=== PATIENT | male | born 1960 | race Caucasian/White ===

== ENCOUNTER 2018-09-02 08:34 | Inpatient (IN) ==
--- NOTE | 2018-09-02 09:00 | Emergency Department Note ---
Disposition Clinical Impression: Cellulitis of foot, left, Gas gangrene, Hypokalemia Diabetic foot ulcer Qualifiers: Diabetic foot ulcer location: unspecified part of foot Diabetes mellitus type: type 1 Laterality: left Non-pressure ulcer stage: with other severity Qualified Code(s): E10.621 - Type 1 diabetes mellitus with foot ulcer Sepsis Qualifiers: Sepsis type: sepsis due to unspecified organism Qualified Code(s): A41.9 - Sepsis, unspecified organism Disposition: Admitted As Inpatient Condition: Fair Referrals: Akin Correa DO [Primary Care Provider] - Forms: ED Satisfaction Letter Time of Disposition: 09:02 Extremity Problem HPI - General Chief complaint: ED Wound/Laceration Stated complaint: wound infection Time Seen by Provider: 09/02/18 08:37 Source: patient, family Mode of arrival: wheelchair Limitations: physical limitation Nursing Notes Reviewed: Yes Vital Signs Reviewed: Yes - History of Present Illness HPI Narrative: The patient was referred to the emergency department for planned admission by his organic section technical lead due to an ongoing left lower extremity diabetic foot ul cer he has been dealing with over the past several months. He was prescribed doxycycline. He denies fevers. He denies pain due to neuropathy Pt Subjective Complaint: extremity swelling Onset (ago): week(s) Consistency: constant Injury Location: left, lower extremity Pain Scale: 0 Associated symptoms: Reports: denies other symptoms - Related Data Previous Rx's Medication Instructions Recorded Ondansetron HCl [Zofran] 4 mg PO TID #15 tablet 08/31/18 Allergies Allergy/AdvReac Type Severity Reaction Status Date / Time Amoxicillin Allergy Rash Verified 08/31/18 18:02 clindamycin Allergy Rash Verified 08/31/18 18:02 All systems ED: reviewed and negative except as stated. Constitutional: Reports: as per HPI Eyes: Reports: as per HPI ENT ED: Reports: as per HPI Cardiovascular: Reports: as per HPI Respiratory: Reports: as per HPI Gastrointestinal: Reports: as per HPI Genitourinary: Reports: as per HPI Musculoskeletal: Reports: other (Left lower extremity swelling and erythema at the foot) Integumentary: Reports: other (Open lesion to left foot) Neurological: Reports: other (Diabetic neuropathy) Psychiatric: Reports: as per HPI Endocrine: Reports: other (Hyperglycemia) Hematological/Lymphatic: Reports: as per HPI Allergic/Immunologic: Reports: as per HPI Past Medical History - Past Medical History Source: old records reviewed Medical history: Reports: diabetes, hypertension Surgical history: Reports: other Psychiatric history: Reports: no psych history - Social History Smoking Status: Never smoker Smokeless Tobacco Status: No Alcohol use: Reports: none Drug use: Reports: none Physical Exam - General Limitations: physical limitation General appearance: alert, in no apparent distress - Head Head exam: atraumatic - Eye Eye exam: Present: normal appearance - ENT ENT exam: normal exam - Neck Neck exam: Present: normal inspection, full ROM - Chest Chest inspection: Present: normal inspection, symmetric chest wall rise - Respiratory Respiratory exam: Present: normal lung sounds bilaterally - Cardiovascular Cardiovascular exam: Present: tachycardia, normal heart sounds - Rectal Exam Rectal exam: Present: deferred - Expanded Lower Extremity Exam Lower leg exam: Present: normal inspection Ankle exam: Present: normal inspection Foot/toe exam: Present: tenderness, swelling, other (Quarter-sized ulcerative lesion extending through skin and subcutaneous tissue to the lateral and plantar surface of the foot. Foot is diffusely swollen and erythematous with increased tactile warmth) - Neurological Exam Neurological exam: Present: alert, oriented X3, CN II-XII intact - Psychiatric Psychiatric exam: Present: normal mood, flat affect - Skin Skin exam: Present: warm, dry Course Course Narrative: Patient presents with what clinically appears to be an infected left diabetic foot ulcer with foot cellulitis. I will process admission to the medicine service with podiatry consultation at the request of the organic section technical lead, . The patient was offered analgesics but declined - Reevaluation(s) Reevaluation #1: Patient meets sepsis criteria due to HR, WBC count, lactate, fever. Timed lactic acid ordered. Blood cultures pending. Admitting physician aware. - Consultations Consultation #1: Dr. richter, podiatry. case d/w him at 10:09 Time: 09:40 Vital Signs Temperature 98.6 F 09/02/18 08:41 Pulse Rate 135 09/02/18 08:41 Respiratory Rate 22 09/02/18 08:41 Blood Pressure 152/69 09/02/18 08:41 O2 Sat by Pulse Oximetry 96 09/02/18 08:41 Temperature 103 F H 09/02/18 10:53 Pulse Rate 125 09/02/18 10:53 Respiratory Rate 16 09/02/18 10:53 Blood Pressure 130/57 09/02/18 10:53 O2 Sat by Pulse Oximetry 96 09/02/18 10:53 Oxygen Delivery Oxygen Delivery Room Air Extremity Problem, Nontraumati - Medical Records Medical records reviewed: Yes I reviewed the patient's medical records. - Lab Data Lab results reviewed: Yes I reviewed the patient's lab results. Result diagrams: 09/02/18 09:00 09/02/18 09:00 Lab Results 09/02/18 09/02/18 09/02/18 Range/Units 09:00 09:00 09:00 WBC 15.3 H (4.3-11.1) K/mcL RBC 4.86 (4.19-5.50) M/mcL Hgb 12.7 L (12.9-16.9) g/dL Hct 38.0 (37.5-50.1) % MCV 78.2 L (83.0-100.0) fL MCH 26.1 L (28.0-33.3) pg MCHC 33.4 (31.6-35.5) g/dL RDW 14.8 H (11.5-14.5) % Plt Count 346 (140-400) K/mcL MPV 9.3 L (9.4-12.4) fL Immature Gran % 0.9 (0-4) % Seg Neutrophils % 88.3 % Lymphocytes % 6.4 % Monocytes % 4.2 % Eosinophils % 0.0 % Basophils % 0.2 % Neutrophils # 13.5 H (1.6-8.9) K/mcL Lymphocytes # 1.0 (0.6-4.6) K/mcL Monocytes # 0.6 (0.0-1.3) K/mcL Eosinophils # 0.0 (0.0-0.6) K/mcL Basophils # 0.0 (0.0-0.2) K/mcL PT 14.0 H (9.4-12.1) Seconds INR 1.2 Sodium 130 L (136-145) mEq/L Potassium 3.2 L (3.5-5.1) mEq/L Chloride 91 L (98-107) mEq/L Carbon Dioxide 24 (23-29) mEq/L BUN 40 H (6-20) mg/dL Creatinine 1.39 H (0.70-1.30) mg/dL Est GFR ( Amer) > 60 (> 60) Est GFR (Non-Af Amer) 53 L (> 60) BUN/Creatinine Ratio 29 H (6-26) Glucose 179 H (70-105) mg/dL Calculated Osmolality 284 (280-300) Lactic Acid (0.5-2.2) mmol/L Calcium 8.6 (8.6-10.3) mg/dL Total Bilirubin 0.6 (0.3-1.0) mg/dL AST 41 H (13-39) Units/L ALT 67 H (7-52) Units/L Alkaline Phosphatase 187 H (34-104) Units/L Serum Total Protein 7.0 (6.4-8.9) g/dL Albumin 3.1 L (3.5-5.7) g/dL Globulin 3.9 H (2.4-3.5) g/dL Albumin/Globulin Ratio 0.8 L (1.1-2.2) Blood Type Antibody Screen 09/02/18 09/02/18 Range/Units 09:00 09:59 WBC (4.3-11.1) K/mcL RBC (4.19-5.50) M/mcL Hgb (12.9-16.9) g/dL Hct (37.5-50.1) % MCV (83.0-100.0) fL MCH (28.0-33.3) pg MCHC (31.6-35.5) g/dL RDW (11.5-14.5) % Plt Count (140-400) K/mcL MPV (9.4-12.4) fL Immature Gran % (0-4) % Seg Neutrophils % % Lymphocytes % % Monocytes % % Eosinophils % % Basophils % % Neutrophils # (1.6-8.9) K/mcL Lymphocytes # (0.6-4.6) K/mcL Monocytes # (0.0-1.3) K/mcL Eosinophils # (0.0-0.6) K/mcL Basophils # (0.0-0.2) K/mcL PT (9.4-12.1) Seconds INR Sodium (136-145) mEq/L Potassium (3.5-5.1) mEq/L Chloride (98-107) mEq/L Carbon Dioxide (23-29) mEq/L BUN (6-20) mg/dL Creatinine (0.70-1.30) mg/dL Est GFR ( Amer) (> 60) Est GFR (Non-Af Amer) (> 60) BUN/Creatinine Ratio (6-26) Glucose (70-105) mg/dL Calculated Osmolality (280-300) Lactic Acid 4.2 H* (0.5-2.2) mmol/L Calcium (8.6-10.3) mg/dL Total Bilirubin (0.3-1.0) mg/dL AST (13-39) Units/L ALT (7-52) Units/L Alkaline Phosphatase (34-104) Units/L Serum Total Protein (6.4-8.9) g/dL Albumin (3.5-5.7) g/dL Globulin (2.4-3.5) g/dL Albumin/Globulin Ratio (1.1-2.2) Blood Type O POSITIVE Antibody Screen NEGATIVE - Radiology Data Radiology results reviewed: Yes I reviewed the patient's radiology results. Critical Care Time Critical Care Time: Yes Total Critical Care Time: 30 Attestation: The high probability of a clinically significant, sudden or life threatening deterioration of the [] system(s) required my full and direct attention, interv ention and personal management. The aggregate critical care time was [] minutes. This time is in addition to time spent performing reported procedures but includes the following: [] Data Review and interpretation [] Patient assessment and monitoring of vital signs [] Documentation [] Medication orders and management
[2018-09-02 09:20] LABS: Basophils % 0.2 %; Hemoglobin 12.7 g/dL (12.9-16.9); Immature Granulocytes % 0.9 % (0-4); Lymphocytes % 6.4 %; Mean Corpuscular HGB Conc 33.4 g/dL (31.6-35.5); Mean Corpuscular Hemoglobin 26.1 pg (28.0-33.3); Mean Corpuscular Volume 78.2 fL (83.0-100.0); Mean Platelet Volume 9.3 fL (9.4-12.4); Monocytes # 0.6 K/mcL (0.0-1.3); Monocytes % 4.2 %; Neutrophils # 13.5 K/mcL (1.6-8.9); Platelet Count 346 K/mcL (140-400); Red Blood Count 4.86 M/mcL (4.19-5.50); Red Cell Distribution Width 14.8 % (11.5-14.5); Segmented Neutrophils % 88.3 %
[2018-09-02] MEDS ORDERED: Levofloxacin 500 MG/100 ML 500 MG/100 ML BAG IVPB ONE (09:31)
[2018-09-02 09:34] LABS: INR 1.2
[2018-09-02 09:37] LABS: Alanine Aminotransferase 67 Units/L (7-52); Albumin 3.1 g/dL (3.5-5.7); Albumin/Globulin Ratio 0.8 (1.1-2.2); Alkaline Phosphatase 187 Units/L (34-104); Aspartate Amino Transferase 41 Units/L (13-39); BUN/Creatinine Ratio 29 (6-26); Bilirubin,Total 0.6 mg/dL (0.3-1.0); Blood Urea Nitrogen 40 mg/dL (6-20); Calcium 8.6 mg/dL (8.6-10.3); Carbon Dioxide 24 mEq/L (23-29); Chloride 91 mEq/L (98-107); Globulin 3.9 g/dL (2.4-3.5); Glucose 179 mg/dL (70-105); Osmolality,Calculated 284 (280-300); Potassium 3.2 mEq/L (3.5-5.1); Sodium 130 mEq/L (136-145); eGFR For Non-African Americans 53 (> 60)
--- NOTE | 2018-09-02 10:57 | Internal Med History&Physical ---
Date of Encounter: 09/02/18 Time of Encounter: 10:05 Internal Medicine - H&P: HPI Admitted From: Emergency Dept Plans for Post Hospital Care: Transfer Long Term Facility History of present illness: Mr. Mulligan is a 57 year old male with a possible medical history of diabetes mellitus, hypertension who presents with a L diabetic foot ulcer that has not responded to outpt antibitoic therapy. The pt has been advise by Dr. Daniels who saw him this morning for inpt hospitalization. The pt has gas in subcut tidssue w/o osteous extension. The pt may have surgical intervention during this hospitalization. He has had previous anesthesia for his back surgery without any problems. The patient denies any chest pain or shortness of breath. He is not a smoker. He does not use alcohol or drugs. He denies any previous history of coronary artery disease or stroke. Past Med Surg Social Fam HX - Past Medical History Medical history: diabetes, hypertension Additional medical history: SPINAL STENOSIS Psychiatric history: no psych history - Past Surgical History Surgical History: other Additional surgical history: tonsils,left foot,back surgery - Social History Smoking Status: Never smoker Smokeless Tobacco Status: No Alcohol use: none Drug use: none - Family History Mother Family Member Ethnicity: Non- Living Status: Hx Family Cardiac Disorders: Yes Hx Family Respiratory Disorders: No Hx Family Cancer: Yes Hx Family GI Disorders: No Hx Family Endocrine Disorder: Yes Hx Family Neuromuscular Disorders: No Hx Family Neurologic Disorders: No Hx Family HEENT Disorders: No Hx Family Autoimmune Disorders: No Internal Medicine - H&P: Meds Ondansetron HCl [Zofran] 4 mg PO TID #15 tablet 08/31/18 [Rx] Allergy/AdvReac Type Severity Reaction Status Date / Time Amoxicillin Allergy Rash Verified 09/02/18 10:59 clindamycin Allergy Rash Verified 09/02/18 10:59 All Systems PM: A 10-system review of systems was performed and is negative for pertinent findings except as documented above in the HPI. - Constitutional Vitals: Temp Pulse Resp BP Pulse Ox 98.6 F 125 16 151/73 97 09/02/18 08:41 09/02/18 09:00 09/02/18 09:00 09/02/18 09:00 09/02/18 09:00 General appearance: Present: A&O X 3, morbidly obese, answers questions ap propriately Exam: Patient lying comfortably in bed. - Head Head exam: Present: atraumatic - Eye Eye exam: Present: conjuntiva pink, sclera anicteric Pupils: Present: normal accommodation - Neck Neck exam general surgery: Present: full ROM, supple, trachea midline Additional comments: No carotid bruits. - Respiratory Respiratory exam: Present: CTAB. Absent: accessory muscle use, rales, rhonchi, wheezes - Cardiovascular Cardiovascular exam: Present: RRR, +S1, +S2. Absent: diastolic murmur, gallop, rubs, systolic murmur - GI/Abdominal GI/Abdominal exam: Present: normal bowel sounds, soft, no peritoneal signs. Absent: distended, tenderness - Extremities Exam Extremities exam: Present: warm, radial pulses palpable and symmetrical. Absent: calf tenderness, cyanotic, pedal edema Additional comments: The left lower extremity shows 1+ pitting edema. The dorsalis pedis pulse is 1+. The posterior tibialis pulse is barely palpable but this is probably due to the overlying edema. The Refill is normal. There is a 3.5 cm in diameter ulcer on the plantar surface overlying the fifth metatarsal area. There is no active drainage or foul odor from this. - Neurological Exam Neurological exam: Present: CN II-XII intact, oriented X3, no focal deficits. Absent: pronater drift, facial droop, speech deficit - Skin Skin exam: Present: dry, intact Internal Med - H&P Results - Labs CBC & Chem 7: 09/02/18 09:00 09/02/18 09:00 Labs: Short CBC 09/02/18 Range/Units 09:00 WBC 15.3 H (4.3-11.1) K/mcL Hgb 12.7 L (12.9-16.9) g/dL Hct 38.0 (37.5-50.1) % Plt Count 346 (140-400) K/mcL Neutrophils # 13.5 H (1.6-8.9) K/mcL BMP 09/02/18 09:00 Sodium 130 L Potassium 3.2 L Chloride 91 L Carbon Dioxide 24 BUN 40 H Creatinine 1.39 H Glucose 179 H Calcium 8.6 Liver Function 09/02/18 Range/Units 09:00 Total Bilirubin 0.6 (0.3-1.0) mg/dL AST 41 H (13-39) Units/L ALT 67 H (7-52) Units/L Alkaline Phosphatase 187 H (34-104) Units/L Albumin 3.1 L (3.5-5.7) g/dL - Impressions ITS Impressions Foot X-Ray 09/02/18 08:57 IMPRESSION: 1. Extensive subcutaneous gas and soft tissue swelling of the left foot. Findings have worsened since 08/12/2018. 2. No new osseous abnormality. Stable osteopenia identified involving the 5th proximal phalanx without obvious bony erosion. Redemonstration of postsurgical changes of the 5th metatarsal. D/ / 09/02/2018 09:45:55 Mignon Lerner MD / ludwig Interpreting Provider: Mignon Lerner MD - Assessment and plan (1) Diabetic foot ulcer Current Visit: Yes Status: Acute Assessment and plan: Admit to the acute medical floor. Start IV vancomycin, IV cefepime and Flagyl. Due to gas and subcutaneous tissue regimen is being added for anaerobic coverage. Podiatry is consulted. Qualifiers: Diabetic foot ulcer location: unspecified part of foot Diabetes mellitus type: type 2 Laterality: left Non-pressure ulcer stage: with other severity Qualified Code(s): E11.621 - Type 2 diabetes mellitus with foot ulcer; L97.528 - Non-pressure chronic ulcer of other part of left foot with other specified severity (2) HTN (hypertension) Current Visit: Yes Status: Acute Assessment and plan: Monitor blood pressure. Continue lisinopril. Qualifiers: Hypertension type: essential hypertension Qualified Code(s): I10 - Essential (primary) hypertension (3) CKD (chronic kidney disease) stage 3, GFR 30-59 ml/min Current Visit: Yes Status: Acute Assessment and plan: Monitor renal function. Adjust medications to renal function. Avoid nephrotoxic. (4) Hypokalemia Current Visit: Yes Status: Acute Assessment and plan: Asymptomatic with mild decrease in potassium levels. Potassium has been replace d in the ER. Continue to monitor. (5) Sepsis Current Visit: Yes Status: Acute Assessment and plan: Meet sepsis criteria. Blood cultures have been obtained supportive care as needed. Follow lactate levels. Qualifiers: Sepsis type: sepsis due to unspecified organism Qualified Code(s): A41.9 - Sepsis, unspecified organism - Time Spent With Patient Total time spent is greater than 50% in coordination of care (as documented) at patient's floor/unit and/or counseling patient: Greater than 35 minutes
[2018-09-02] MEDS ORDERED: Gadolinium Contrast Agent (WT Based) IV PRN (11:45)
--- NOTE | 2018-09-02 14:49 | Podiatry Consult Note ---
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 insulin use: wit h terminal computer operator use Diabetes mellitus complication status: without complication Qualified Code(s): E11.9 - Type 2 diabetes mellitus without complications; Z79.4 - care home (current) use of insulin (2) Diabetic foot ulcer Current visit: Yes Status: Acute Assessment: Dressing intact with serosang drainage noted Dressing removed and site flushed with .9NS Blandon grade 3 ulcer left lateral aspect mid-foot Maceration noted wound edges No odor Probes to bone Increased temperature in left foot compared to right Erythema extending dorsal aspect of left foot Edema 3-4+ No streaking noted Undermining noted MRI pending ESR 43 on 08/19/18 CRP 5mg/l 08/19/18 HgbA1c 6.9 05/22/18 Left foot x-ray with evidence of extensive subcutaneous gas and soft tissue swelling WBC elevated 15.3 and patient febrile, temp in ER 103, down to 100.6 PT 14.0 INR 1.2 Plan: Adaptic applied 4x4's applied and secured with kerlix Pt to remain NPO Plan for Dr. Zuñiga to take patient to OR later today for I&D, surgical procedure discussed with patient Recommend ID consult any recommendations are appreciated All questions and concerns addressed Will continue to monitor Qualifiers: Diabetic foot ulcer location: unspecified part of foot Diabetes mellitus type: type 2 Laterality: left Non-pressure ulcer stage: with other severity Qualified Code(s): E11.621 - Type 2 diabetes mellitus with foot ulcer; L97.528 - Non-pressure chronic ulcer of other part of left foot with other specified severity History of Present Illness HPI: Mr. Mulligan is a 57 year old male, alert and oriented x 3, with a past medical history of DM, neuropathy, HTN, osteomyelitis, and obesity. Patient has been undergoing treatment for a left foot ulcer since April of [address] Zuñiga in wound care. Patient reports the wound started after he obtained a blood blister from wearing a new lateral lift support in his shoe. Patient reports he walks on the side of his foot and this is why he was given the support. He has been receiving treatment in wound care and he reports the most recent treatment he has been receiving is pressure dressings using 4x4's and kerlix. Today he was sent to the ER from wound care due to the left foot ulcer not responding to therapy and fever. Dr. Zuñiga recommended he go to the ER for admission for IV antibiotics and possible surgery today for an I&D. Patient denies any chest pain, shortness of breath, or calf pain. Patient does report fever for one week, temperature upon arrival to ER 103, down to 100.6 at 1225 after having Tylenol. Patient also reports diarrhea, last episode this am around 0900. He denies any nausea, vomiting, chills, flushing, or abdominal pain. He is known to podiatry and wound care and was treated by Dr. Mathew in the past. He is not a smoker. He does not use alcohol or drugs. He denies any previous history of coronary artery disease or stroke. is sitting at bedside with patient. Past Med Surg Social Fam HX - Past Medical History Medical history: diabetes, hypertension Additional medical history: SPINAL STENOSIS Psychiatric history: no psych history - Past Surgical History Surgical History: other Additional surgical history: tonsils,left foot,back surgery - Social History Smoking Status: Never smoker Smokeless Tobacco Status: No Alcohol use: none Drug use: none - Family History Mother Family Member Ethnicity: Non- Living Status: Still Living Hx Family Cardiac Disorders: Yes Hx Family Respiratory Disorders: No Hx Family Cancer: Yes Hx Family GI Disorders: Yes Hx Family Genitourinary Disorders: No Hx Family Endocrine Disorder: Yes Hx Family Musculoskeletal Disorders: No Hx Family Neuromuscular Disorders: No Hx Family Neurologic Disorders: No Hx Family HEENT Disorders: No Hx Family Autoimmune Disorders: No Hx Family Reproductive Disorders: No Hx Family Psychosocial Disorders: No Hx Family Medical Disorders: No Medications and Allergies Ondansetron HCl [Zofran] 4 mg PO TID #15 tablet 08/31/18 [Rx] Ammonium Lactate [Lac-Hydrin Five] 1 appl TP BID 09/02/18 [History] Ascorbic Acid [Vitamin C] 500 mg PO DAILY 09/02/18 [History] Doxycycline Hyclate 100 mg PO DAILY 09/02/18 [History] Dulaglutide [Trulicity] 1.5 mg SQ QWEEK 09/02/18 [History] Ferrous Sulfate [Iron] 325 mg PO DAILY 09/02/18 [History] Insulin ASPART [Novolog Flexpen] 30 units SQ TIDWM 09/02/18 [History] Insulin Glargine,Hum.rec.anlog [Lantus Solostar] 50 unit SQ BID 09/02/18 [History] Lisinopril/Hydrochlorothiazide [Zestoretic 20-25 mg Tablet] 1 tab PO DAILY 09/02/18 [History] Metformin HCl 1,000 mg PO BID 09/02/18 [History] Pioglitazone HCl 45 mg PO DAILY 09/02/18 [History] Potassium Chloride [K-Tab ER] 10 meq PO DAILY 09/02/18 [History] RX: Atorvastatin [Lipitor] 40 mg PO DAILY 09/02/18 [History] Allergy/AdvReac Type Severity Reaction Status Date / Time Amoxicillin Allergy Rash Verified 09/02/18 10:59 clindamycin Allergy Rash Verified 09/02/18 10:59 All Systems Reviewed: The remainder of the systems were reviewed and are negative Review of systems: As per HPI Physical Exam - Constitutional Vitals: Temp Pulse Resp BP Pulse Ox 100.6 F H 118 20 118/70 93 09/02/18 12:25 09/02/18 12:25 09/02/18 12:25 09/02/18 12:25 09/02/18 12:25 Exam: Constitiutional: Alert and oriented x 3, well nourished, obese male. No acute distress noted. Vascular: 1/4 DP, 2/4 PT pulses noted, CFT <3 sec to all digits, skin warm from toes to tibia and erythema noted left foot with 3-4+ edema Neurologic: Diminished protective sensation noted, proprioception sensation absent Dermatalogic: Blandon grade 3 ulcer noted left lateral aspect mid-foot. Wound edges with maceration. No odor. Probes to bone with undermining. Erythema extending to dorsal aspect of foot and edema noted 3-4+. No streaking noted. Skin around ulcer dry and peeling. Skin temperature increased in left foot compared to right Musculoskeletal: 4/5 muscle strength and normal tone - Expanded Lower Extremities Exam 1 - 2.3 x 3.1 cm Blandon grade 2 ulcer Results - Labs Result Diagrams: 09/02/18 09:00 09/02/18 09:00 Labs: Abnormal lab results WBC 15.3 K/mcL (4.3-11.1) H 09/02/18 09:00 Hgb 12.7 g/dL (12.9-16.9) L 09/02/18 09:00 MCV 78.2 fL (83.0-100.0) L 09/02/18 09:00 MCH 26.1 pg (28.0-33.3) L 09/02/18 09:00 RDW 14.8 % (11.5-14.5) H 09/02/18 09:00 MPV 9.3 fL (9.4-12.4) L 09/02/18 09:00 Neutrophils # 13.5 K/mcL (1.6-8.9) H 09/02/18 09:00 PT 14.0 Seconds (9.4-12.1) H 09/02/18 09:00 Sodium 130 mEq/L (136-145) L 09/02/18 09:00 Potassium 3.2 mEq/L (3.5-5.1) L 09/02/18 09:00 Chloride 91 mEq/L (98-107) L 09/02/18 09:00 BUN 40 mg/dL (6-20) H 09/02/18 09:00 Creatinine 1.39 mg/dL (0.70-1.30) H 09/02/18 09:00 Est GFR (Non-Af Amer) 53 (> 60) L 09/02/18 09:00 BUN/Creatinine Ratio 29 (6-26) H 09/02/18 09:00 Glucose 179 mg/dL (70-105) H 09/02/18 09:00 Lactic Acid 4.2 mmol/L (0.5-2.2) H* 09/02/18 09:59 AST 41 Units/L (13-39) H 09/02/18 09:00 ALT 67 Units/L (7-52) H 09/02/18 09:00 Alkaline Phosphatase 187 Units/L (34-104) H 09/02/18 09:00 Albumin 3.1 g/dL (3.5-5.7) L 09/02/18 09:00 Globulin 3.9 g/dL (2.4-3.5) H 09/02/18 09:00 Albumin/Globulin Ratio 0.8 (1.1-2.2) L 09/02/18 09:00 H & H 09/02/18 Range/Units 09:00 Hgb 12.7 L (12.9-16.9) g/dL Hct 38.0 (37.5-50.1) % All other labs normal. Consult Discharge Plan - Plan Referrals: Akin Correa DO [Primary Care Provider] -
[2018-09-02] MEDS ORDERED: D5% in Water 1,000 ML IVC PRN ×2 (15:47→19:01)
[2018-09-02] MEDS ORDERED: *HR* Dextrose 50 % in Water (Syg) 50 ML SYRINGE IVP PRN ×2 (15:47→19:01)
[2018-09-02] MEDS ORDERED: Dextrose Gel 15 GM/37.5 ML TUBE PO PRN ×4 (15:47→19:01)
[2018-09-02 15:57] LABS: Estimated Average Glucose 171 mg/dl; Hemoglobin A1C 7.6 %
[2018-09-02] MEDS ORDERED: MetroNIDAZOLE 500 MG/100 ML 500 MG/100 ML BAG IVPB SCH (16:00)
[2018-09-02] MEDS ORDERED: Cefepime HCl 2,000 MG in Water for inj. (sterile) 20 ML 20 ML IVP SCH (16:00)
[2018-09-02] MEDS ORDERED: Insulin LISPRO 300 UNITS/3 ML VIAL SQ SCH ×2 (16:30→21:00)
[2018-09-02] MEDS ORDERED: *HR* Metformin 500 MG TABLET PO SCH (17:00)
[2018-09-02] MEDS ORDERED: Bupivacaine/EPI 1:200k 0.25%PF 30 ML VIAL ONE (17:02)
[2018-09-02] MEDS ORDERED: Bupivacaine-MPF 0.25% 10 ML VIAL ONE (17:03)
[2018-09-02] MEDS ORDERED: Vancomycin 1,000 MG VIAL ONE ×2 (17:03→17:16)
[2018-09-02] MEDS ORDERED: Lidocaine 1% 20 ML MDV ONE (17:03)
[2018-09-02] MEDS ORDERED: Propofol 500 MG/50 ML INFUS..BTL ONE ×2 (17:05→18:11)
[2018-09-02] MEDS ORDERED: Lidocaine -MPF 2% 2 ML VIAL ONE (17:06)
[2018-09-02] MEDS ORDERED: *HR* FentaNYL (PF) 100 MCG/2 ML VIAL ONE (17:08)
--- NOTE | 2018-09-02 17:10 | Podiatry Progress Note ---
Date of Encounter: 09/02/18 Time of Encounter: 04:35 - Assessment and Plan (1) Gas gangrene Current Visit: Yes Status: Acute Discussed with patient surgical procedure incision and drainage debridement of nonviable tissue and bone biopsy. Nature of the procedure risks versus benefits potential complications consequences of surgery and his condition discussed at length. No guarantees were made that he would keep his foot or leg leg. Patient understood this is a staged procedure and he will require multiple procedures. All of his questions have been answered informed consent was signed. NPO. To OR. Subjective Interval history: Patient admitted with gas gangrene and possible osteomyelitis. Objective - Vital Signs Vital Signs: Vital Signs Temp Pulse Resp BP Pulse Ox 09/02/18 12:25 100.6 F H 118 20 118/70 93 09/02/18 11:00 103 F H 123 16 134/59 94 09/02/18 10:53 103 F H 125 16 130/57 96 09/02/18 09:00 125 16 151/73 97 09/02/18 08:41 98.6 F 135 22 152/69 96 Intake and Output 09/02/18 09/02/18 09/02/18 07:59 15:59 23:59 Intake Total 350 / 350 Balance 350 / 350 Intake: IV Fluids 350 / 350 Potassium Chloride 10 mEq/100mL 100 / 100 10 meq In 100 ml @ 100 mls/hr IVPB Q1H SANDRA Rx#:[id number] Vancocin 1,000 MG In 0.9 % 250 / 250 Sodium Chloride 250 ML @ 167 mls/hr IVPB ONCE ONE Rx#: [id number] Other: Weight 154.448 kg Blood Glucose* 123 Patient Weight 09/02/18 23:59 Weight 154.448 kg - Lab Result Diagrams: 09/02/18 09:00 09/02/18 09:00 Labs: Abnormal lab results WBC 15.3 K/mcL (4.3-11.1) H 09/02/18 09:00 Hgb 12.7 g/dL (12.9-16.9) L 09/02/18 09:00 MCV 78.2 fL (83.0-100.0) L 09/02/18 09:00 MCH 26.1 pg (28.0-33.3) L 09/02/18 09:00 RDW 14.8 % (11.5-14.5) H 09/02/18 09:00 MPV 9.3 fL (9.4-12.4) L 09/02/18 09:00 Neutrophils # 13.5 K/mcL (1.6-8.9) H 09/02/18 09:00 ESR 104 mm/hr (0-10) H 09/02/18 13:57 PT 14.0 Seconds (9.4-12.1) H 09/02/18 09:00 Sodium 130 mEq/L (136-145) L 09/02/18 09:00 Potassium 3.2 mEq/L (3.5-5.1) L 09/02/18 09:00 Chloride 91 mEq/L (98-107) L 09/02/18 09:00 BUN 40 mg/dL (6-20) H 09/02/18 09:00 Creatinine 1.39 mg/dL (0.70-1.30) H 09/02/18 09:00 Est GFR (Non-Af Amer) 53 (> 60) L 09/02/18 09:00 BUN/Creatinine Ratio 29 (6-26) H 09/02/18 09:00 Glucose 179 mg/dL (70-105) H 09/02/18 09:00 Hemoglobin A1c 7.6 % (-5.6) H 09/02/18 09:00 Lactic Acid 2.5 mmol/L (0.5-2.2) H 09/02/18 15:34 AST 41 Units/L (13-39) H 09/02/18 09:00 ALT 67 Units/L (7-52) H 09/02/18 09:00 Alkaline Phosphatase 187 Units/L (34-104) H 09/02/18 09:00 C-Reactive Protein 273 mg/L (Less than 10) H 09/02/18 15:13 Albumin 3.1 g/dL (3.5-5.7) L 09/02/18 09:00 Globulin 3.9 g/dL (2.4-3.5) H 09/02/18 09:00 Albumin/Globulin Ratio 0.8 (1.1-2.2) L 09/02/18 09:00 Microbiology, Last 48 Hours 09/02/18 09:59 Blood Culture - Preliminary Peripheral Venipuncture Culture is incubating and being continuously monitored for growth. Final report to follow. Consult Discharge Plan - Plan Referrals: Akin Correa DO [Primary Care Provider] -
--- NOTE | 2018-09-02 17:23 | Anesthesia Evaluation PreOp ---
Date of Encounter: 09/02/18 Time of Encounter: 17:20 - Past History Planned Operation: Left Foot I & D Cardiac History: HTN, Hyperlipidemia Pulmonary History: Snore TRANSITION MGR RN History: Denies Any Significant HX Other Medical History: Diabetes Type II, Other (Obese BMI- 42.6) Anesthesia History: No Prior Anesthetic Complications, Past Anesthesia (I & D Foot) Alcohol Use: none Drug use: none Medications and Allergies Ondansetron HCl [Zofran] 4 mg PO TID #15 tablet 08/31/18 [Rx] Allergy/AdvReac Type Severity Reaction Status Date / Time Amoxicillin Allergy Rash Verified 09/02/18 10:59 clindamycin Allergy Rash Verified 09/02/18 10:59 - Meds/Allergy Pre-op Review Medications Reviewed: Yes Allergies Reviewed: Yes Beta Blockers on Current Med List: No Anesthesia Results - Labs 09/02/18 09:00 09/02/18 09:00 Anesthesia Exam O2 Sat Height 1.91 m Height 1.91 m Height 1.91 m Weight 154.448 kg Weight 320 kg Weight 145.15 kg O2 Sat by Pulse Oximetry 93 O2 Sat by Pulse Oximetry 94 O2 Sat by Pulse Oximetry 96 O2 Sat by Pulse Oximetry 97 O2 Sat by Pulse Oximetry 96 Vital Signs Temp Pulse Resp BP Pulse Ox 98.6 F 135 22 152/69 96 09/02/18 08:41 09/02/18 08:41 09/02/18 08:41 09/02/18 08:41 09/02/18 08:41 NPO (# of Hours): > 8 Hrs Pain Scale: 0 Pain Scale Used: Numeric (1 - 10) - HEENT Pupil (Motor): Pupils equal, EOMI Mallampati: III Teeth: Normal Oral Opening: Greater than 3 - TRANSITION MGR RN LOC: Oriented TRANSITION MGR RN Motor: Normal RUE, Normal LUE, Normal RLE, Normal LLE, Normal Face TRANSITION MGR RN Sensory: Normal: RUE, LUE, RLE, LLE, Face - Cardiac Rhythm: Regular Murmur: None JVD: No Carotid Bruit: No - Pulmonary Breath Sounds: bilateral Clear Respiratory Effort: Symmetrical Anesthesia Assess/Plan ASA Score: 3 Level of consciousness: Cooperative Anesthetic Plan: MAC Autologous Blood: Yes Monitoring Plan: Standard Monitors Recovery Plan: Other
[2018-09-02] MEDS ORDERED: *HR* PHENYLEPHRINE 1,000 MCG/10 ML SYRINGE IVP ONE (18:18)
[2018-09-02] MEDS ORDERED: EPHEDrine 50 MG/ML VIAL ONE (18:29)
--- NOTE | 2018-09-02 18:48 | Operative Note ---
Date of procedure: 09/02/18 Pre-op diagnosis: left foot gas gangrene, osteomyelitis, abscess Post-op diagnosis: same Procedure: incision and drainage left foot bone biopsy left foot Implants: none Complications: none Anesthesia: MAC Local Anesthetics: 1% Lidocaine HCL SubQ (cc) Surgeon: Juan Zuñiga Was there an surveyor instrument assistant present: No Estimated blood loss (cc): 100 Specimen: micro and path 5th met, left foot soft tissue-micro Condition: stable Disposition: PACU Procedure in Detail: Indications: 57-year-old diabetic female with gas gangrene infection and likely osteomyelitis of the fifth metatarsal base being brought to the operating room for bone biopsy and incision and drainage and removal of nonviable tissue of the left foot. Nature of the procedures, risks versus benefits potential complic ations consequences of surgery and his condition discussed at length. Patient understood this could be a staged procedure and he will require multiple surgeries in the future if his foot is even able to be salvaged. All of his questions have been answered informed consent was signed patient was brought to the operating room placed on operating room table in the supine position. 1% lidocaine plain was injected into the patient's left foot. Tourniquet was applied but not inflated during the entire procedure. Bone biopsy left foot. Attention was directed to the patient's left foot where a rongeur was used to obtain bone specimens from the fifth metatarsal base which were sent to microbiology and pathology. Should be noted that the bone specimens had devitalized soft tissue covering them and the bone was also noted to be soft. Incision and drainage left foot. An incision was made connecting to the submetatarsal 5 ulceration proximally and distally. The area was probed and explored. Devitalized tissue was excised and sent to microbiology. The area did not connect with the dorsal foot and an incision was made in this area and serosanguineous drainage was expressed. In the plantar aspect of the foot there was purulent drainage expressed. There was also purulent drainage around the fifth metatarsal bone and soft tissue. Pulse lavage was utilized to irrigate the area and contained 3 g of vancomycin. Devitalized tissue had been excised. Surgicel was placed in the wound and pressure held. Adequate hemostasis was present. Postoperative bandaging included 4 x 4 gauze ABDs Kerlix and an Kanu wrap. Patient will return to the floor where he will continue IV antibiotics.
[2018-09-02] MEDS: Insulin LISPRO 300 UNITS/3 ML VIAL SQ SCH (19:48)
[2018-09-02] MEDS ORDERED: Insulin DETEMIR 100 UNIT/ML X5UNITS SQ SCH (21:00)
[2018-09-02] MEDS: Insulin DETEMIR 100 UNIT/ML X5UNITS SQ SCH (21:24)
[2018-09-02] MEDS: MetroNIDAZOLE 500 MG/100 ML 500 MG/100 ML BAG IVPB SCH (23:58)
[2018-09-03] MEDS: Cefepime HCl 2,000 MG in Water for inj. (sterile) 20 ML 20 ML IVP SCH ×4 (00:02→23:39)
[2018-09-03] MEDS: Acetaminophen 325 MG TABLET PO PRN ×3 (01:38→16:44)
[2018-09-03] MEDS: *HR* Enoxaparin 40 MG/0.4 ML SYRINGE SQ SCH (05:22)
[2018-09-03] MEDS ORDERED: *HR* Enoxaparin 40 MG/0.4 ML SYRINGE SQ SCH (06:00)
[2018-09-03 06:46] LABS: Basophils % 0.1 %; Eosinophils % 0.3 %; Hematocrit 31.9 % (37.5-50.1); Immature Granulocytes % 0.9 % (0-4); Lymphocytes # 1.3 K/mcL (0.6-4.6); Lymphocytes % 9.2 %; Mean Corpuscular HGB Conc 33.5 g/dL (31.6-35.5); Mean Corpuscular Hemoglobin 25.8 pg (28.0-33.3); Mean Corpuscular Volume 76.9 fL (83.0-100.0); Mean Platelet Volume 9.6 fL (9.4-12.4); Monocytes # 1.4 K/mcL (0.0-1.3); Monocytes % 9.9 %; Neutrophils # 11.4 K/mcL (1.6-8.9); Platelet Count 282 K/mcL (140-400); Red Blood Count 4.15 M/mcL (4.19-5.50); Red Cell Distribution Width 15.1 % (11.5-14.5); Segmented Neutrophils % 79.6 %
[2018-09-03 06:52] LABS: Hemoglobin 10.7 g/dL (12.9-16.9)
[2018-09-03 07:04] LABS: BUN/Creatinine Ratio 33 (6-26); Blood Urea Nitrogen 46 mg/dL (6-20); Calcium 8.1 mg/dL (8.6-10.3); Carbon Dioxide 24 mEq/L (23-29); Chloride 100 mEq/L (98-107); Glucose 199 mg/dL (70-105); Osmolality,Calculated 291 (280-300); Potassium 3.5 mEq/L (3.5-5.1); Sodium 132 mEq/L (136-145); eGFR For Non-African Americans 53 (> 60)
[2018-09-03] MEDS ORDERED: Insulin LISPRO 300 UNITS/3 ML VIAL SQ SCH ×2 (07:30→12:00)
[2018-09-03] MEDS ORDERED: *HR* Metformin 500 MG TABLET PO SCH (08:00)
[2018-09-03] MEDS: Loratadine 10 MG TABLET PO SCH (08:14)
[2018-09-03 08:15] LABS: Acinetobacter baumannii by PCR Not Detected (Not Detect); Candida albicans by PCR Not Detected (Not Detect); Candida glabrata by PCR Not Detected (Not Detect); Candida krusei by PCR Not Detected (Not Detect); Candida parapsilosis by PCR Not Detected (Not Detect); Candida tropicalis by PCR Not Detected (Not Detect); Enterobacter cloacae Cmplx PCR Not Detected (Not Detect); Enterobacteriaceae by PCR Not Detected (Not Detect); Enterococcus by PCR Not Detected (Not Detect); Escherichia coli by PCR Not Detected (Not Detect); Klebsiella oxytoca by PCR Not Detected (Not Detect); Klebsiella pneumoniae by PCR Not Detected (Not Detect); Proteus by PCR Not Detected (Not Detect); Pseudomonas aeruginosa by PCR Not Detected (Not Detect); Serratia marcescens by PCR Not Detected (Not Detect); Staphylococcus aureus by PCR Not Detected (Not Detect); Staphylococcus by PCR Not Detected (Not Detect); Streptococcus agalactiae(B)PCR DETECTED (Not Detect); Streptococcus by PCR DETECTED (Not Detect); Streptococcus pneumoniae PCR Not Detected (Not Detect); Streptococcus pyogenes (A) PCR Not Detected (Not Detect); blaKPC Carbapenem-Resist Gene Not Detected (Not Detect); vanA/B Vancomycin-Resist Genes Not Detected (Not Detect)
[2018-09-03] MEDS: MetroNIDAZOLE 500 MG/100 ML 500 MG/100 ML BAG IVPB SCH ×3 (08:15→23:39)
[2018-09-03] MEDS: Insulin DETEMIR 100 UNIT/ML X5UNITS SQ SCH ×2 (08:41→21:41)
[2018-09-03] MEDS ORDERED: Loratadine 10 MG TABLET PO SCH (09:00)
[2018-09-03] MEDS ORDERED: Lisinopril 20 MG TABLET PO SCH ×2 (09:00)
[2018-09-03] MEDS: Ringers Solution, Lactated 1,000 ML IVC SCH (09:36)
--- NOTE | 2018-09-03 09:44 | Internal Med Progress Note ---
Hospitalist Progress Note - Encounter Date of Encounter: 09/03/18 Time of Encounter: 09:41 - Subjective Interval History: I have seen and evaluated the patient and bedside. Patient denies chest pain, or shortness of breath. Reports no sensation in the lower extremity bilaterally. Denies nausea, vomiting and abdominal pain. - Exam Vitals: Temp Pulse Resp BP Pulse Ox 98.5 F 93 16 116/68 95 09/03/18 07:55 09/03/18 07:55 09/03/18 07:55 09/03/18 07:55 09/03/18 07:55 Exam: Vitals: Reviewed. General: Alert and oriented 4. In no acute distress. Skin: Normal color, no rash, no lesions. HEENT: Dry oral mucosa, EOM, pupils equal, round and reactive. Cardiovascular: RRR, normal S1 & S2, no rubs, murmurs or gallops. Lungs: Clear to auscultation bilaterally, no wheezes or crackles. Abdomen: Obese, soft, non-tender, no rigidity. Extremities: Decreased sensation to touch in the lower extremity bilaterally, left lower extremity with clean surgical dressing. Neurological: Normal cognition and motor skills. Rest of the physical exam is non contributory - Assessment and Plan (1) Bacteremia Current Visit: Yes Status: Acute Assessment and Plan: 1 bottle of initial blood culture growing gram positive cocci. patient meets sepsis criteria. with lactic acid of 2.5 from 4.2 on admission. started on IV fluid with LR@75mls/hr repeat lactic acid this afternoon continue broad spectrum IV antibiotics Will repeat 2 sets of blood cultures ID has been consulted. TTE ordered. (2) Sepsis Current Visit: Yes Status: Acute Assessment and Plan: Plan of care as above (3) Diabetic foot ulcer Current Visit: Yes Status: Acute Assessment and Plan: left foot gas gangrene, osteomyelitis, abscess. Status post incision and drainage left foot bone biopsy left foot Plan Continue vancomycin and cefepime and Flagyl. ID has been consulted for antibiotic management patient will require a prolonged course of IV antibiotics. Recommendation appreciated Wound care by geometry tutor. (4) CKD (chronic kidney disease) stage 3, GFR 30-59 ml/min Current Visit: Yes Status: Acute Assessment and Plan: Nephro Protective strategies. Patient on vancomycin per pharmacy dosing. Star russell on IV hydration. We will reassess kidney function in the morning. (5) Diabetes Current Visit: Yes Status: Chronic Assessment and Plan: Blood sugars optimally controlled. Discontinue metformin. Continue Levemir 40 units twice a day plus lispro low-dose sliding scale plus lispro 7 units before meals. Carb controlled diet. (6) HTN (hypertension) Current Visit: Yes Status: Chronic Assessment and Plan: Blood pressure running in the low 100s in the setting of sepsis. Discontinue lisinopril. We will continue to monitor and adjust medication accordingly. DVT Prophylaxis: Patient is on enoxaparin 40 mg subcutaneous daily. - Summary of Assessment and Plan Summary of Assessment and Plan: Patient to remain in the hospital due to bacteremia, sepsis. Diabetic foot ulcer and Osteomyelitis on broad-spectrum IV antibiotics. - Time Spent with Patient Total time spent is greater than 50% in coordination of care (as documented) at patient's floor/unit and/or counseling patient: Greater than 35 minutes (45) Plan of Care Discussed with: patient (the nurse and his .) Internal Medicine: Result - Labs CBC & Chem 7: 09/03/18 06:33 09/03/18 06:33 Labs: Short CBC 09/03/18 Range/Units 06:33 WBC 14.4 H (4.3-11.1) K/mcL Hgb 10.7 L D (12.9-16.9) g/dL Hct 31.9 L (37.5-50.1) % Plt Count 282 (140-400) K/mcL Neutrophils # 11.4 H (1.6-8.9) K/mcL BMP 09/03/18 06:33 Sodium 132 L Potassium 3.5 Chloride 100 Carbon Dioxide 24 BUN 46 H Creatinine 1.39 H Glucose 199 H Calcium 8.1 L - ABG Interpretation ABG results: PT/INR, D-dimer PT 14.0 Seconds (9.4-12.1) H 09/02/18 09:00 - Impressions Impressions Foot X-Ray 09/02/18 08:57 IMPRESSION: 1. Extensive subcutaneous gas and soft tissue swelling of the left foot. Findings have worsened since 08/12/2018. 2. No new osseous abnormality. Stable osteopenia identified involving the 5th proximal phalanx without obvious bony erosion. Redemonstration of postsurgical changes of the 5th metatarsal. D/ / 09/02/2018 09:45:55 Mignon Lerner MD / ludwig Interpreting Provider: Mignon Lerner MD Foot MRI 09/02/18 11:45 IMPRESSION: 1. Diffuse subcutaneous edema and postcontrast enhancement of the soft tissues of the foot and also involving the intrinsic musculature of the foot with subcutaneous gas noted along the dorsal and plantar soft tissues and an ulceration extending to the underlying bone of the base of the 5th metatarsal. Findings most compatible with cellulitis and are highly suspicious for underlying myositis given subcutaneous gas and likely gas-forming infection. No well-defined drainable rim enhancing fluid collection is identified. 2. Marrow signal changes involving the residual 5th metatarsal with chronic appearing 5th metatarsal base fracture. Findings most compatible with osteomyelitis of the 5th metatarsal. 3. Patchy marrow edema and postcontrast enhancement involving the midfoot and hindfoot which is favored to reflect reactive noninfectious osteitis given no well-defined confluent T1 signal identified at these sites on the current exam. Early changes of osteomyelitis would be difficult to excluded but are felt less likely given the widespread marrow signal change. D/ / Shad Siddiqui MD / Shad Siddiqui MD Interpreting Provider: Shad Siddiqui MD Consult Discharge Plan - Plan Referrals: Akin Correa DO [Primary Care Provider] - (2) Sepsis Qualifiers: Sepsis type: sepsis due to unspecified organism Qualified Code(s): A41.9 - Sepsis, unspecified organism (3) Diabetic foot ulcer Qualifiers: Diabetic foot ulcer location: unspecified part of foot Diabetes mellitus type: type 2 Laterality: left Non-pressure ulcer stage: with other severity Qualified Code(s): E11.621 - Type 2 diabetes mellitus with foot ulcer; L97.528 - Non-pressure chronic ulcer of other part of left foot with other specified severity (5) Diabetes Qualifiers: Diabetes mellitus type: type 2 Diabetes mellitus jail insulin use: with jail use Diabetes mellitus complication status: without complication Qualified Code(s): E11.9 - Type 2 diabetes mellitus without complications; 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
[2018-09-03] MEDS: Insulin LISPRO 300 UNITS/3 ML VIAL SQ SCH ×3 (12:40→21:40)
--- NOTE | 2018-09-03 14:13 | Infectious Disease Consult ---
Date of Encounter: 09/03/18 Time of Encounter: 14:08 Assessment and Plan (1) Severe sepsis Status: Acute Assessment and plan: On admission patient had 3 SIRS criteria lactic acidosis of 4.5 Likely secondary to skin and soft tissue infection with the underlying abscess and osteomyelitis C. difficile and viral syndrome are also on my differential (2) Gas gangrene Status: Acute Assessment and plan: MRI: diffuse subcutaneous edema with subcutaneous gas compatible with cellulitis/myositis. Marrow signal changes involving the residual fifth metatarsal with chronic appearing fifth metatarsal base fracture compatible with osteomyelitis. s/p I&D 09/02/[address] Zuñiga; intra op purulence noted and soft bone; intra op cultures sent and are pending Currently on cefepime, vancomycin and Flagyl Continue current antibiotic therapy until the Intra-Op cultures are finalized at that time we will make further recommendations on what antibiotics and the duration Duration is at least 6 weeks because there is bone involvement and it did discuss at length with the patient and his Patient will need a PICC line once cultures finalize but if they are having a hard time getting a peripheral access, his bacteremia and group B streptococcus I think it is okay to put a PICC line now. 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 difficile Patient also had viral syndromes I will check arrester infectious panel Qualifiers: Diarrhea type: unspecified type Qualified Code(s): R19.7 - Diarrhea, unspecified Infectious Disease HPI - Data of Consult Patient: new to practice Consult date: 09/03/18 Requesting Physician: Brie Maya MD Primary Care Provider: Akin Correa DO - Consult Narrative Reason for consult: "bacteremia, diabetic foot ulcer" History of present illness: Mr. Mulligan is a 57 year old male Patient is a 57-year-old gentleman who was transferred to [place] emergency department from a home on 09/02/2018 for left foot diabetic ulcer that has not responded to outpatient oral antibiotic therapy. We are consult at today for antibiotics recommendations. Patient is a 57-year-old gentleman who lives with his at home. 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 Patient states that the weeks ago his grandchild had the viral illness including nausea vomiting diarrhea and fever and then the patient last week was having the exact same symptoms with diarrhea nausea and some sinus pressure. He denied any sore throat or rhinorrhea or cough or sputum production. Patient recently was given Augmentin about 3 weeks ago. Patient went to an urgent care and they told him this is probably just a viral illness and he should get better on his own. Patient was also having fevers and chills and body aches. On further questioning patient, since April patient had his diabetic foot ulcer on left side. Patient has been diabetic for about 15 years and is insulin-dependent. His hemoglobin A1c usually is under 7. Since admission, patient has been febrile with a MAXIMUM TEMPERATURE of 103F. Tachycardia, tachypnea with normal blood pressure. Presenting labs revealed WBC of 15.3 with 88% neutrophils no bands. BUN 40, creatinine 1.39, lactic acid 4.2. ESR and CRP 104 and 273 respectively. A full MRI of the left revealed diffuse subcutaneous edema with subcutaneous gas compatible with cellulitis/myositis. Marrow signal changes involving the residual fifth me tatarsal with chronic appearing fifth metatarsal base fracture compatible with osteomyelitis. Patchy marrow edema and post contrast enhancement involving the midfoot and hindfoot which reflects reactive noninfection osteitis. Blood cultures were obtained and are growing group B streptococcus. Patient was taken to surgery by Dr. Zuñiga and patient underwent incision and drainage of the left foot and bone biopsy. In the plantar aspect of the foot there was purulent drainage expressed as per the OR note. Patient has been started on vancomycin, cefepime and metronidazole. We were asked to evaluate the patient's make further recommendations. CC: Brie Maya MD Past Med Surg Social Fam HX - Past Medical History Medical history: diabetes, hypertension Additional medical history: SPINAL STENOSIS Psychiatric history: no psych history - Past Surgical History Surgical History: other Additional surgical history: tonsils,left foot,back surgery - Social History Smoking Status: Never smoker Smokeless Tobacco Status: No Alcohol use: none Drug use: none - Family History Mother Family Member Ethnicity: Non- Living Status: Still Living Hx Family Cardiac Disorders: Yes Hx Family Respiratory Disorders: No Hx Family Cancer: Yes Hx Family GI Disorders: Yes Hx Family Genitourinary Disorders: No Hx Family Endocrine Disorder: Yes Hx Family Musculoskeletal Disorders: No Hx Family Neuromuscular Disorders: No Hx Family Neurologic Disorders: No Hx Family HEENT Disorders: No Hx Family Autoimmune Disorders: No Hx Family Reproductive Disorders: No Hx Family Psychosocial Disorders: No Hx Family Medical Disorders: No Infectious Disease-CN:Meds Ondansetron HCl [Zofran] 4 mg PO TID #15 tablet 08/31/18 [Rx] Doxycycline Hyclate 100 mg PO DAILY 09/02/18 [History] Dulaglutide [Trulicity] 1.5 mg SQ SA 09/02/18 [History] Ferrous Sulfate [Iron] 325 mg PO DAILY 09/02/18 [History] Insulin ASPART [Novolog Flexpen] 40 units SQ BID 09/02/18 [History] Insulin Glargine,Hum.rec.anlog [Lantus Solostar] 40 unit SQ BID 09/02/18 [Histo ry] Lisinopril/Hydrochlorothiazide [Zestoretic 20-25 mg Tablet] 1 tab PO DAILY 09/02/18 [History] Metformin HCl 1,000 mg PO BID 09/02/18 [History] Allergy/AdvReac Type Severity Reaction Status Date / Time Amoxicillin Allergy Rash Verified 09/02/18 10:59 clindamycin Allergy Rash Verified 09/02/18 10:59 Review of systems: 10 point review of systems done, negative other for what is mentioned in history of present illness Exam - Constitutional Vitals: Temp Pulse Resp BP Pulse Ox 98.3 F 97 16 133/72 96 09/03/18 12:01 09/03/18 12:01 09/03/18 12:01 09/03/18 12:01 09/03/18 12:01 General appearance: cooperative, no febrile, no disheveled - Head Head exam: Present: atraumatic, normocephalic - Eye Eye exam: Present: EOMI, PERRL, sclera anicteric - ENT ENT exam: Present: mucous membranes dry, normal exam - Neck Neck exam: Present: full ROM. Absent: meningismus - Respiratory Respiratory exam: Present: CTAB. Absent: wheezes - Cardiovascular Cardiovascular exam: Present: RRR, +S1, +S2 - GI/Abdominal GI/Abdominal exam: Present: normal bowel sounds, soft. Absent: tenderness - Extremities Exam Extremities exam: Present: full ROM, normal inspection Additional comments: Left lower extremity surgically wrapped - Back Exam Back exam: Absent: CVA tenderness (L), CVA tenderness (R), vertebral tenderness - Neurological Exam Neurological exam: Present: alert, oriented X3 - Psychiatric Psychiatric exam: Present: anxious, normal affect - Skin Skin exam: Present: normal color. Absent: rash Infectious Disease CN: Results - Labs CBC & Chem 7: 09/03/18 06:33 09/03/18 06:33 Cultures: Cultures 09/03/18 11:05 Blood Culture - Preliminary Peripheral Venipuncture Culture is incubating and being continuously monitored for growth. Final report to follow. 09/03/18 11:05 Blood Culture - Preliminary Peripheral Venipuncture Culture is incubating and being continuously monitored for growth. Final report to follow. 09/02/18 09:59 Blood Culture - Preliminary Peripheral Venipuncture Gram Positive Cocci 09/03/18 18:30 Surgical Biopsy Culture - Preliminary Bone 09/02/18 19:39 Anaerobic Culture - Preliminary Left Foot Culture is incubating. 09/02/18 19:39 Surgical Biopsy Culture - Preliminary Left Foot Serology: Serology 09/02/18 Range/Units 09:59 A. baumannii (PCR) Not Detected (Not Detect) Rajani albicans (PCR) Not Detected (Not Detect) C. glabrata (PCR) Not Detected (Not Detect) C. krusei (PCR) Not Detected (Not Detect) C. parapsilosis (PCR) Not Detected (Not Detect) C. tropicalis (PCR) Not Detected (Not Detect) Enterobacteriac sp PCR Not Detected (Not Detect) E. cloacae complex PCR Not Detected (Not Detect) Enterococcus sp PCR Not Detected (Not Detect) E. coli (PCR) Not Detected (Not Detect) H. influenzae (PCR) Not Detected (Not Detect) Klebsiella oxytoca PCR Not Detected (Not Detect) Klebsiella pneumoniae Not Detected (Not Detect) List. monocytogenes PCR Not Detected (Not Detect) N. meningitidis (PCR) Not Detected (Not Detect) Proteus species (PCR) Not Detected (Not Detect) Serratia marcescens PCR Not Detected (Not Detect) Staphylococcus sp PCR Not Detected (Not Detect) Staph aureus (PCR) Not Detected (Not Detect) mecA-Methicil Res Gene Not Detected (Not Detect) Streptococcus sp PCR DETECTED A (Not Detect) Group A Strep DNA Not Detected (Not Detect) Group B Strep (PCR) DETECTED A (Not Detect) Strep pneumoniae (PCR) Not Detected (Not Detect) P. aeruginosa (PCR) Not Detected (Not Detect) Gilda/B-Vanco Res Genes Not Detected (Not Detect) KPC (blaKPC) Detect PCR Not Detected (Not Detect) Consult Discharge Plan - Plan Referrals: Akin Correa DO [Primary Care Provider] - (unsure of discharge plan at this time. Patient may go to ECF )
[2018-09-03] MEDS ORDERED: Perflutren Lipid Microsphere 1.3 ML in 0.9 % Sodium Chloride 8.7 ML IVP ONE (16:15)
--- NOTE | 2018-09-03 16:33 | Podiatry Progress Note ---
Date of Encounter: 09/03/18 Time of Encounter: 15:00 - Assessment and Plan (1) Diabetes Current Visit: Yes Assessment: Hgb A1c 6.9 05/22/18. 7.6 09/02/18 Glucose 199 known hx of DM' Plan: Tight glycemic control to be managed by internal medicine Qualifiers: Diabetes mellitus type: type 2 Diabetes mellitus dermatology nurse insulin use: with detention use Diabetes mellitus complication status: without complication Qualified Code(s): E11.9 - Type 2 diabetes mellitus without complications; Z79.4 - skilled nursing (current) use of insulin (2) Diabetic foot ulcer Current Visit: Yes Status: Acute Assessment: Dressing intact with serosang drainage noted Dressing removed and site flushed with .9NS Blandon grade 3 ulcer left lateral aspect mid-foot No odor Surgicel noted in wound bed Increased temperature in left foot compared to right Erythema extending dorsal aspect of left foot Edema 3-4+ No streaking noted MRI with evidence of: 1. Diffuse subcutaneous edema and postcontrast enhancement of the soft tissues of the foot and also involving the intrinsic musculature of the foot with subcutaneous gas noted along the dorsal and plantar soft tissues and an ulceration extending to the underlying bone of the base of the 5th metatarsal. Findings most compatible with cellulitis and are highly suspicious for underlying myositis given subcutaneous gas and likely gas-forming infection. No well-defined drainable rim enhancing fluid collection is identified. 2. Marrow signal changes involving the residual 5th metatarsal with chronic appearing 5th metatarsal base fracture. Findings most compatible with osteomyelitis of the 5th metatarsal. 3. Patchy marrow edema and postcontrast enhancement involving the midfoot and hindfoot which is favored to reflect reactive noninfectious osteitis given no well-defined confluent T1 signal identified at these sites on the current exam. Early changes of osteomyelitis would be difficult to excluded but are felt less likely given the widespread marrow signal change. ESR 43 on 08/19/18, increased to 104 09/02/18 CRP 5mg/l 08/19/18, increased to 273 08/02/18 HgbA1c 6.9 05/22/18, 7.6 08/02/18 Left foot x-ray with evidence of extensive subcutaneous gas and soft tissue swelling WBC trending down, 14.4, febrile through the night temperature 101.8, but back down during the day to 98.3 Lactic acid 2.5 09/02/18 PT 14.0 INR 1.2 Plan: Wound vac applied. Skin draped in normal fashion, adaptic placed to wound bed, black foam cut and placed, bridged to dorsal aspect of foot, covered with tegaderm and kerlix, no leak noted. Continuous suction at 125mmHg, dressing to be changed every Thursday, Thursday, Thursday Recommend ID consult any recommendations are appreciated May have to place muscle flap at later date to cover All questions and concerns addressed Will continue to monitor Qualifiers: Diabetic foot ulcer location: unspecified part of foot Diabetes mellitus type: type 2 Laterality: left Non-pressure ulcer stage: with other severity Qualified Code(s): E11.621 - Type 2 diabetes mellitus with foot ulcer; L97.528 - Non-pressure chronic ulcer of other part of left foot with other specified severity Subjective Interval history: Post op day #1. incision and drainage left foot and bone biopsy left foot by Dr. Zuñiga on 09/02/18 Patient is alert and oriented x 3, sitting in bed with head elevated. at bedside. Dressing intact with dry serosang drainage noted. Patient denies pain. He denies any chest pain, shortness of breath, or calf pain. Patient was febrile during the night with a temperature of 101.8, down to 98.3 at 1201 this afternoon. He denies any nausea, vomiting, chills, or diarrhea. Objective - Vital Signs Vital Signs: Vital Signs Temp Pulse Resp BP Pulse Ox 09/03/18 12:01 98.3 F 97 16 133/72 96 09/03/18 07:55 98.5 F 93 16 116/68 95 09/03/18 03:24 99.3 F 106 16 101/63 95 09/03/18 01:08 101.8 F H 09/02/18 23:05 101.7 F H 103 18 95/54 92 09/02/18 20:08 95 09/02/18 19:40 98.4 F 101 16 101/63 95 Intake and Output 09/03/18 09/03/18 09/03/18 07:59 15:59 23:59 Intake Total 920 / 920 740 / 740 Output Total 350 / 350 Balance 570 / 570 740 / 740 Intake: IV Fluids 620 / 620 620 / 620 Lactated Ringers 1,000 ML @ 75 300 / 300 mls/hr IVC .[id number] SANDRA Rx#: [id number] Maxipime 2,000 MG In Water for 20 / 20 20 / 20 inj. (sterile) 20 ML @ 300 mls/ hr IVP Q8HR SANDRA Rx#:[id number] Flagyl Premix 500 MG/100 ML 500 100 / 100 100 / 100 mg In 100 ml @ 100 mls/hr IVPB Q8HR [facility]DR[facility] Rx#:[id number] Vancocin 1,500 MG In 0.9 % 200 / 200 Sodium Chloride 250 ML @ 166.67 mls/hr IVPB Q12H SANDRA Rx#: [id number] Vancocin 2,000 MG In 0.9 % 500 / 500 Sodium Chloride 500 ML @ 250 mls/hr IVPB Q12H SANDRA Rx#: [id number] Oral 300 / 300 120 / 120 Output: Urine 350 / 350 Other: Weight 155.1 kg Blood Glucose* 229 222 Patient Weight 09/03/18 23:59 Weight 155.1 kg - Exam Exam: Constitiutional: Alert and oriented x 3, well nourished male. No acute distress noted. Vascular: 2/4 DP, 2/4 PT pulses noted, CFT <3 sec to all digits, skin warm from toes to tibia and erythema noted left foot with 3-4+ edema Neurologic: Diminished protective sensation noted, proprioception sensation absent Dermatalogic: Blandon grade 3 ulcer noted left lateral aspect mid-foot. No odor. Erythema extending to dorsal aspect of foot and edema noted 3-4+. No streaking noted. Skin temperature increased in left foot compared to right Musculoskeletal: 4/5 muscle strength and normal tone - Lab Result Diagrams: 09/03/18 06:33 09/03/18 06:33 Labs: Abnormal lab results WBC 14.4 K/mcL (4.3-11.1) H 09/03/18 06:33 RBC 4.15 M/mcL (4.19-5.50) L 09/03/18 06:33 Hgb 10.7 g/dL (12.9-16.9) L D 09/03/18 06:33 Hct 31.9 % (37.5-50.1) L 09/03/18 06:33 MCV 76.9 fL (83.0-100.0) L 09/03/18 06:33 MCH 25.8 pg (28.0-33.3) L 09/03/18 06:33 RDW 15.1 % (11.5-14.5) H 09/03/18 06:33 Neutrophils # 11.4 K/mcL (1.6-8.9) H 09/03/18 06:33 Monocytes # 1.4 K/mcL (0.0-1.3) H 09/03/18 06:33 ESR 104 mm/hr (0-10) H 09/02/18 13:57 PT 14.0 Seconds (9.4-12.1) H 09/02/18 09:00 Sodium 132 mEq/L (136-145) L 09/03/18 06:33 BUN 46 mg/dL (6-20) H 09/03/18 06:33 Creatinine 1.39 mg/dL (0.70-1.30) H 09/03/18 06:33 Est GFR (Non-Af Amer) 53 (> 60) L 09/03/18 06:33 BUN/Creatinine Ratio 33 (6-26) H 09/03/18 06:33 Glucose 199 mg/dL (70-105) H 09/03/18 06:33 POC Glucose 222 mg/dL (70-99) H 09/03/18 11:13 Hemoglobin A1c 7.6 % (-5.6) H 09/02/18 09:00 Lactic Acid 2.5 mmol/L (0.5-2.2) H 09/02/18 15:34 Calcium 8.1 mg/dL (8.6-10.3) L 09/03/18 06:33 AST 41 Units/L (13-39) H 09/02/18 09:00 ALT 67 Units/L (7-52) H 09/02/18 09:00 Alkaline Phosphatase 187 Units/L (34-104) H 09/02/18 09:00 C-Reactive Protein 273 mg/L (Less than 10) H 09/02/18 15:13 Albumin 3.1 g/dL (3.5-5.7) L 09/02/18 09:00 Globulin 3.9 g/dL (2.4-3.5) H 09/02/18 09:00 Albumin/Globulin Ratio 0.8 (1.1-2.2) L 09/02/18 09:00 Streptococcus sp PCR DETECTED (Not Detect) A 09/02/18 09:59 Group B Strep (PCR) DETECTED (Not Detect) A 09/02/18 09:59 Microbiology, Last 48 Hours 09/03/18 11:05 Blood Culture - Preliminary Peripheral Venipuncture Culture is incubating and being continuously monitored for growth. Final report to follow. 09/03/18 11:05 Blood Culture - Preliminary Peripheral Venipuncture Culture is incubating and being continuously monitored for growth. Final report to follow. 09/02/18 09:59 Blood Culture - Preliminary Peripheral Venipuncture Gram Positive Cocci 09/03/18 18:30 Surgical Biopsy Culture - Preliminary Bone 09/02/18 19:39 Anaerobic Culture - Preliminary Left Foot Culture is incubating. 09/02/18 19:39 Surgical Biopsy Culture - Preliminary Left Foot Consult Discharge Plan - Plan Referrals: Akin Correa DO [Primary Care Provider] - (unsure of discharge plan at this time. Patient may go to [facility] )
[2018-09-03 18:09] LABS: Adenovirus Not Detected (Not Detect); Bordetella Pertussis Not Detected (Not Detect); Chlamydophila pneumoniae Not Detected (Not Detect); Coronavirus 229E Not Detected (Not Detect); Coronavirus HKU1 Not Detected (Not Detect); Coronavirus NL63 Not Detected (Not Detect); Coronavirus OC43 DETECTED (Not Detect); Human Metapneumovirus Not Detected (Not Detect); Human Rhinovirus/Enterovirus Not Detected (Not Detect); Influenza A Subtype 2009 H1 Not Detected (Not Detect); Influenza A Untypeable Not Detected (Not Detect); Influenza B Not Detected (Not Detect); Mycoplasma pneumoniae Not Detected (Not Detect); Parainfluenza Virus 1 Not Detected (Not Detect); Parainfluenza Virus 2 Not Detected (Not Detect); Parainfluenza Virus 3 Not Detected (Not Detect); Parainfluenza Virus 4 Not Detected (Not Detect); Respiratory Syncytial Virus Not Detected (Not Detect)
[2018-09-04] MEDS: Acetaminophen 325 MG TABLET PO PRN (00:33)
[2018-09-04] MEDS: *HR* Enoxaparin 40 MG/0.4 ML SYRINGE SQ SCH (05:09)
[2018-09-04] MEDS: Ringers Solution, Lactated 1,000 ML IVC SCH ×2 (05:11→11:01)
[2018-09-04] MEDS: MetroNIDAZOLE 500 MG/100 ML 500 MG/100 ML BAG IVPB SCH ×2 (08:29→17:03)
[2018-09-04] MEDS: Loratadine 10 MG TABLET PO SCH (08:30)
[2018-09-04] MEDS: Cefepime HCl 2,000 MG in Water for inj. (sterile) 20 ML 20 ML IVP SCH ×2 (08:30→17:02)
[2018-09-04] MEDS: Insulin LISPRO 300 UNITS/3 ML VIAL SQ SCH ×3 (08:35→21:14)
[2018-09-04] MEDS: Insulin DETEMIR 100 UNIT/ML X5UNITS SQ SCH (08:35)
--- NOTE | 2018-09-04 11:58 | Internal Med Progress Note ---
Hospitalist Progress Note - Encounter Date of Encounter: 09/04/18 Time of Encounter: 11:56 - Subjective Interval History: I have seen and evaluated the patient and bedside. Patient reports the swelling on his left foot is improving after the wound vac was inserted. denies chest pain abdominal pain, nausea and vomiting. - Exam Vitals: Temp Pulse Resp BP Pulse Ox 98.9 F 109 16 137/74 99 09/04/18 11:50 09/04/18 11:50 09/04/18 11:50 09/04/18 11:50 09/04/18 11:50 Exam: Vitals: Reviewed. General: Alert and oriented 4. In no acute distress. Cardiovascular: RRR, normal S1 & S2, no rubs, murmurs or gallops. Lungs: Clear to auscultation bilaterally, no wheezes or crackles. Abdomen: Obese, soft, non-tender, no rigidity. NABS in all 4 quadrants Extremities: 2+ pitting edema on the lower extr b/l. clean dressing on the left foot, plus wound vac in place Neurological: Normal cognition. Rest of the physical exam is non contributory - Assessment and Plan (1) Bacteremia Current Visit: Yes Status: Acute Assessment and Plan: due to diabetic foot ulcer. lactic acid has normalized. patient on broad spectrum antibiotics per ID recommendations. continue LR@75mls/hr x1 more bag. second set of blood culture: no growth. (2) Sepsis Current Visit: Yes Status: Resolved (3) Diabetic foot ulcer Current Visit: Yes Status: Acute Assessment and Plan: s/p op day 2. Plan of care as per marine diesel technician recommendations. Wound vac applied. Skin draped in normal fashion, adaptic placed to wound bed, black foam cut and placed, bridged to dorsal aspect of foot, covered with tegaderm and kerlix, no leak noted. Continuous suction at 125mmHg, dressing to be changed every Thursday, Thursday, Thursday ID consulted, recommendations appreciated (4) CKD (chronic kidney disease) stage 3, GFR 30-59 ml/min Current Visit: Yes Status: Acute Assessment and Plan: Kidney function at baseline. nephro protective strategies. Patient on IV hydration (5) Diabetes Current Visit: Yes Status: Chronic Assessment and Plan: blood sugar suboptimally controlled. increase levemir to 50 units BID, increase lispro to 10 units ac, plus low dose lispro sliding scale. on a carb controlled diet (6) HTN (hypertension) Current Visit: Yes Status: Chronic Assessment and Plan: Will continue to hold antihypertensive medications. DVT Prophylaxis: On enoxaparin 40mg SubQ daily - Summary of Assessment and Plan Summary of Assessment and Plan: Patient to remain in the hospital due to bacteremia. diabetic foot ulcer. Pending blood culture sensitivity and specificity. - Time Spent with Patient Total time spent is greater than 50% in coordination of care (as documented) at patient's floor/unit and/or counseling patient: Greater than 35 minutes (45) Plan of Care Discussed with: patient (his and the nurse) Internal Medicine: Result - Labs CBC & Chem 7: 09/03/18 06:33 09/03/18 06:33 - ABG Interpretation ABG results: PT/INR, D-dimer PT 14.0 Seconds (9.4-12.1) H 09/02/18 09:00 - Impressions Impressions Echocardiogram 09/03/18 09:50 Impressions: LVEF 60-65%. Normal left ventricular diastolic function. Normal LV chamber size, wall thickness and function. Atypical septal motion consistent with bundle branch block. The right ventricle was not well visualized. Unable to estimate RVSP due to lack of TR jet. The valves were not well visualized. No obvious significant valvular dysfunction visualized. Left Ventricular Wall Motion: Rest Echo Findings All wall segments showed normal motion. Findings: Study Quality * Technically sub-optimal due to clinical status. ECG Findings * Sinus tachycardia. Left Ventricle * LVEF 60-65%. * Normal left ventricular diastolic function. * Normal LV chamber size, wall thickness and function. * Definity echo contrast was used. * Atypical septal motion consistent with bundle branch block. Right Ventricle * The right ventricle was not well visualized. Left Atrium * Normal left atrial size. Right Atrium * Normal right atrial size. Interatrial Septum * Interatrial septum not well evaluated. Aortic Valve * Aortic valve not well visualized. * No aortic regurgitation. * No aortic stenosis. Mitral Valve * No mitral regurgitation. * No mitral stenosis. * Mitral valve not well visualized. Tricuspid Valve * Trace tricuspid regurgitation. * No tricuspid stenosis. * Unable to estimate RVSP due to lack of TR jet. * Tricuspid valve not well visualized. Pulmonic Valve * Pulmonic valve is not well visualized. Aorta * Normally sized aortic root. Pericardium * The pericardium appears normal. IVC * Normal IVC dimensions and inspiratory collapse. Consult Discharge Plan - Plan Referrals: Akin Correa DO [Primary Care Provider] - (unsure of discharge plan at this time. Patient may go to [facility] ) (2) Sepsis Qualifiers: Sepsis type: sepsis due to unspecified organism Qualified Code(s): A41.9 - Sepsis, unspecified organism (3) Diabetic foot ulcer Qualifiers: Diabetic foot ulcer location: unspecified part of foot Diabetes mellitus type: type 2 Laterality: left Non-pressure ulcer stage: with other severity Qualified Code(s): E11.621 - Type 2 diabetes mellitus with foot ulcer; L97.528 - Non-pressure chronic ulcer of other part of left foot with other specified severity (5) Diabetes Qualifiers: Diabetes mellitus type: type 2 Diabetes mellitus remote computer terminal operator insulin use: with remote computer terminal operator use Diabetes mellitus complication status: without complication Qualified Code(s): E11.9 - Type 2 diabetes mellitus without complications; Z79.4 - [facility] (current) use of insulin (6) HTN (hypertension) Qualifiers: Hypertension type: essential hypertension Qualified Code(s): I10 - Essential (primary) hypertension
[2018-09-04] MEDS ORDERED: Ringers Solution, Lactated 1,000 ML IVC SCH (12:15)
[2018-09-04] MEDS ORDERED: Insulin LISPRO 300 UNITS/3 ML VIAL SQ SCH (17:00)
[2018-09-04] MEDS ORDERED: Insulin DETEMIR 100 UNIT/ML X5UNITS SQ SCH (21:00)
[2018-09-05] MEDS: Cefepime HCl 2,000 MG in Water for inj. (sterile) 20 ML 20 ML IVP SCH ×4 (00:50→23:40)
[2018-09-05] MEDS: MetroNIDAZOLE 500 MG/100 ML 500 MG/100 ML BAG IVPB SCH ×4 (00:51→23:40)
[2018-09-05 03:05] LABS: Basophils % 0.2 %; Eosinophils # 0.1 K/mcL (0.0-0.6); Eosinophils % 1.1 %; Hematocrit 33.3 % (37.5-50.1); Hemoglobin 11.2 g/dL (12.9-16.9); Immature Granulocytes % 1.4 % (0-4); Lymphocytes # 1.5 K/mcL (0.6-4.6); Lymphocytes % 14.1 %; Mean Corpuscular HGB Conc 33.6 g/dL (31.6-35.5); Mean Corpuscular Volume 77.3 fL (83.0-100.0); Mean Platelet Volume 9.3 fL (9.4-12.4); Monocytes % 9.8 %; Neutrophils # 7.7 K/mcL (1.6-8.9); Platelet Count 454 K/mcL (140-400); Red Blood Count 4.31 M/mcL (4.19-5.50); Segmented Neutrophils % 73.4 %
[2018-09-05 03:26] LABS: BUN/Creatinine Ratio 21 (6-26); Blood Urea Nitrogen 22 mg/dL (6-20); Carbon Dioxide 22 mEq/L (23-29); Chloride 99 mEq/L (98-107); Glucose 228 mg/dL (70-105); Magnesium 1.9 mg/dL (1.6-2.6); Osmolality,Calculated 283 (280-300); Phosphorous 2.5 mg/dL (2.7-4.5); Potassium 3.2 mEq/L (3.5-5.1); Sodium 131 mEq/L (136-145); eGFR For Non-African Americans > 60 (> 60)
[2018-09-05] MEDS: *HR* Enoxaparin 40 MG/0.4 ML SYRINGE SQ SCH (05:13)
[2018-09-05] MEDS: Insulin DETEMIR 100 UNIT/ML X5UNITS SQ SCH ×2 (08:26→21:06)
[2018-09-05] MEDS: Insulin LISPRO 300 UNITS/3 ML VIAL SQ SCH ×4 (08:27→21:06)
[2018-09-05] MEDS: Loratadine 10 MG TABLET PO SCH (08:30)
--- NOTE | 2018-09-05 10:46 | Internal Med Progress Note ---
Hospitalist Progress Note - Encounter Date of Encounter: 09/05/18 Time of Encounter: 10:44 - Subjective Interval History: I have seen and evaluated the patient and bedside. Reports feeling well today, but the swelling on the left foot is slightly worse today. denies pain on the foot. denies loose stool or diarrhea - Exam Vitals: Temp Pulse Resp BP Pulse Ox 98.3 F 103 23 156/88 95 09/05/18 07:35 09/05/18 07:35 09/05/18 07:35 09/05/18 07:35 09/05/18 08:36 Exam: Vitals: Reviewed. General: Alert and oriented 4. In no acute distress. Cardiovascular: RRR, normal S1 & S2, no rubs, murmurs or gallops. Lungs: Clear to auscultation bilaterally, no wheezes or crackles. Abdomen: Obese, soft, non-tender, no rigidity. NABS in all 4 quadrants Extremities: 2+ pitting edema on the lower extr b/l. clean dressing on the left foot. Neurological: Normal cognition. Rest of the physical exam is non contributory - Assessment and Plan (1) Diabetic foot ulcer Current Visit: Yes Status: Acute Assessment and Plan: wound vac per quality control clerk. on vancomycin per pharmacy protocol, and cefepime 2gm/IV Q8HRs. Left foot biopsy culture: growing Staph Aureus MRSA, Strep agalactiae and gram positive cocci (pending sensitivity). will discuss with ID about discontinuing metronidazole ID recommendations appreciated. (2) Bacteremia Current Visit: Yes Status: Resolved Assessment and Plan: repeat blood cultures no growth, pending final report. patient on broad spectrum IV antibiotics. (3) Sepsis Current Visit: Yes Status: Resolved (4) CKD (chronic kidney disease) stage 3, GFR 30-59 ml/min Current Visit: Yes Status: Acute Assessment and Plan: Kidney function improved with IV hydration. continue nephro protective strategies (5) Diabetes Current Visit: Yes Status: Chronic Assessment and Plan: blood sugar sub-optimally controlled. increase levemir to 55 units BID, increase Lispro to 12 units ac, plus lispro medium dose sliding scale ac. (6) HTN (hypertension) Current Visit: Yes Status: Chronic Assessment and Plan: Blood pressure suboptimally controlled. We will add lisinopril 10 mg by mouth daily. DVT Prophylaxis: Continue enoxaparin 40 mg subcutaneous daily. - Summary of Assessment and Plan Summary of Assessment and Plan: Patient to remain in the hospital due to diabetic foot ulcer pending sensitivity and specificity of bone biopsy - Time Spent with Patient Total time spent is greater than 50% in coordination of care (as documented) at patient's floor/unit and/or counseling patient: Greater than 35 minutes (45) Plan of Care Discussed with: patient (and the nurse) Internal Medicine: Result - Labs CBC & Chem 7: 09/05/18 02:28 09/05/18 02:28 Labs: Short CBC 09/05/18 Range/Units 02:28 WBC 10.5 (4.3-11.1) K/mcL Hgb 11.2 L (12.9-16.9) g/dL Hct 33.3 L (37.5-50.1) % Plt Count 454 H D (140-400) K/mcL Neutrophils # 7.7 (1.6-8.9) K/mcL BMP 09/05/18 02:28 Sodium 131 L Potassium 3.2 L Chloride 99 Carbon Dioxide 22 L BUN 22 H Creatinine 1.05 Glucose 228 H Calcium 8.0 L - ABG Interpretation ABG results: PT/INR, D-dimer PT 14.0 Seconds (9.4-12.1) H 09/02/18 09:00 - Impressions Impressions Chest X-Ray 09/04/18 13:22 IMPRESSION: Low lung volumes without acute cardiopulmonary disease. D/ / Mignon Lerner MD / Mignon Lerner MD Interpreting Provider: Mignon Lerner MD Consult Discharge Plan - Plan Referrals: Akin Correa DO [Primary Care Provider] - (unsure of discharge plan at this time. Patient may go to [facility] ) (1) Diabetic foot ulcer Qualifiers: Diabetic foot ulcer location: unspecified part of foot Diabetes mellitus type: type 2 Laterality: left Non-pressure ulcer stage: with other severity Qualified Code(s): E11.621 - Type 2 diabetes mellitus with foot ulcer; L97.528 - Non-pressure chronic ulcer of other part of left foot with other specified severity (3) Sepsis Qualifiers: Sepsis type: sepsis due to unspecified organism Qualified Code(s): A41.9 - Sepsis, unspecified organism (5) Diabetes Qualifiers: Diabetes mellitus type: type 2 Diabetes mellitus computer terminal operator insulin use: with computer terminal operator use Diabetes mellitus complication status: without complication Alfredo lified Code(s): E11.9 - Type 2 diabetes mellitus without complications; Z79.4 - intermediate (current) use of insulin (6) HTN (hypertension) Qualifiers: Hypertension type: essential hypertension Qualified Code(s): I10 - Essential (primary) hypertension
[2018-09-06] MEDS: *HR* Enoxaparin 40 MG/0.4 ML SYRINGE SQ SCH (05:24)
[2018-09-06 06:41] LABS: Basophils % 0.4 %; Eosinophils # 0.2 K/mcL (0.0-0.6); Eosinophils % 2.2 %; Hematocrit 30.3 % (37.5-50.1); Hemoglobin 10.2 g/dL (12.9-16.9); Immature Granulocytes % 1.8 % (0-4); Lymphocytes # 1.7 K/mcL (0.6-4.6); Lymphocytes % 16.5 %; Mean Corpuscular HGB Conc 33.7 g/dL (31.6-35.5); Mean Corpuscular Hemoglobin 26.1 pg (28.0-33.3); Mean Corpuscular Volume 77.5 fL (83.0-100.0); Mean Platelet Volume 9.4 fL (9.4-12.4); Monocytes # 1.1 K/mcL (0.0-1.3); Monocytes % 10.2 %; Neutrophils # 7.2 K/mcL (1.6-8.9); Platelet Count 455 K/mcL (140-400); Red Blood Count 3.91 M/mcL (4.19-5.50); Red Cell Distribution Width 15.3 % (11.5-14.5); Segmented Neutrophils % 68.9 %
[2018-09-06 06:56] LABS: BUN/Creatinine Ratio 20 (6-26); Blood Urea Nitrogen 19 mg/dL (6-20); Calcium 8.3 mg/dL (8.6-10.3); Carbon Dioxide 25 mEq/L (23-29); Chloride 104 mEq/L (98-107); Glucose 154 mg/dL (70-105); Magnesium 1.9 mg/dL (1.6-2.6); Osmolality,Calculated 287 (280-300); Phosphorous 2.7 mg/dL (2.7-4.5); Potassium 3.4 mEq/L (3.5-5.1); Sodium 136 mEq/L (136-145); eGFR For Non-African Americans > 60 (> 60)
[2018-09-06 07:22] LABS: Large Platelets Present (Not Present); Platelet Estimate Increased (Normal)
[2018-09-06] MEDS: MetroNIDAZOLE 500 MG/100 ML 500 MG/100 ML BAG IVPB SCH (09:15)
[2018-09-06] MEDS: Insulin LISPRO 300 UNITS/3 ML VIAL SQ SCH ×4 (09:15→21:21)
[2018-09-06] MEDS: Cefepime HCl 2,000 MG in Water for inj. (sterile) 20 ML 20 ML IVP SCH (09:16)
[2018-09-06] MEDS: Loratadine 10 MG TABLET PO SCH (09:17)
[2018-09-06] MEDS: Insulin DETEMIR 100 UNIT/ML X5UNITS SQ SCH ×2 (09:17→21:32)
--- NOTE | 2018-09-06 09:24 | Infectious Disease Progress No ---
Date of Encounter: 09/06/18 Time of Encounter: 09:22 - Assessment and Plan (1) Severe sepsis Current Visit: Yes Status: Acute The patient had recent sepsis criteria plus lactic acidosis on admission. Likely secondary to osteomyelitis and gas gangrene and bacteremia and viral syndrome. Improved. Blood cultures drawn set was positive for group B strep. Repeat blood cultures on 09/03/18 are no growth to date 2 sets. Recommendations: Await repeat blood cultures to finalize. Wound care and activity per the podiatry team. Pain management per the primary team. Continue droplet precautions per hospital policy. Discontinue Cefepime. Continue Flagyl 500mg Q8H, but can switch to PO. Continue Vancomycin IV. Pharmacy to dose. Goal trough ~15. Duration of treatment depends on the clinical picture, but likely 6 weeks. Consult VAT to switch EPIV to PICC line. Will need weekly CBC, BUN/Cr, ESR, CRP, and Vanc trough. Will need weekly PICC care per protocol. Follow up with ID 09/22/18 at 1345. (2) Bacteremia Current Visit: Yes Status: Resolved Causative organism: Group B strep. Source: Likely diabetic foot infection. Blood cultures drawn set was positive for group B strep. Repeat blood cultures on 09/03/18 are no growth to date 2 sets. Currently on IV cefepime and vancomycin. (3) Osteomyelitis Current Visit: Yes Status: Acute Location: Left foot fifth metatarsal per imaging. Causative organism: MSSA and group B strep or bone cultures. Initial ESR 104, CRP 273. MRI of the left foot 09/02/18 showed marrow signal changes involving the residual fifth metatarsal with chronic-appearing fifth metatarsal base fracture. Findings compatible with osteolysis of the fifth metatarsal. Patchy marrow bill ma and postcontrast enhancement involving the midfoot and hindfoot which is a favored to reflect reactive non-infectious osteitis versus early changes of osteomyelitis were noted as well. Podiatry consulted. Status post incision and drainage of left foot and one biopsy left foot 09/02/[address] Zuñiga. Operative note reviewed. Intraoperative cultures as above. Currently on vancomycin, cefepime, and Flagyl. Qualifiers: Osteomyelitis type: acute hematogenous Osteomyelitis location: foot Laterality: left Qualified Code(s): M86.072 - Acute hematogenous osteomyelitis, left ankle and foot (4) Gas gangrene Current Visit: Yes Status: Resolved Location: Left foot. Likely infectious. MRI of the left foot showed diffuse subcutaneous edema postcontrast enhancement of the soft tissues of the foot and also involving the intrinsic musculature of the foot with subcutaneous gas noted along the dorsal and plantar soft tissues and an ulceration extending to the underlying bone at the base of the fifth metatarsal. Findings are most compatible with cellulitis and a highly suspicious for underlying myositis given subcutaneous gas and likely gas-forming infection. Status post I&D 09/02/[address] Lowry. Currently on vancomycin, cefepime, and Flagyl. (5) Cellulitis of foot, left Current Visit: Yes Status: Acute Location: Left foot. Likely secondary to diabetic foot ulcer. Cause of organism: Group B strep, MSSA, and presumptively enterococcus. Currently on vancomycin, cefepime, and Flagyl. (6) Viral syndrome Current Visit: Yes Status: Acute Respiratory infectious panel positive for current virus. Currently on droplet precautions. (7) Diarrhea Current Visit: Yes Status: Resolved Patient reports a formed stool this morning. Qualifiers: Diarrhea type: unspecified type Qualified Code(s): R19.7 - Diarrhea, unspecified (8) Diabetes Current Visit: Yes Status: Chronic Recommend strict glucose control per the primary team. 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 - Subjective Interval history: Patient seen and examined. No acute events noted overnight. Patient states overall he feels well. Denies fevers, chills, rigors. Denies chest pain, shortness of breath, or cough. Denies congestion, earache, or sore throat. Denies nausea, vomiting, diarrhea, or constipation. Denies abdominal pain or urinary complaints. States his appetite is good. Reports mild pain at the surgical site overnight, but denies any currently. Denies any oral thrush or any skin lesions. Infect Dis PN-Objective Data - Labs CBC & Chem 7: 09/06/18 05:57 09/06/18 05:57 Labs: Laboratory Results - last 24 hr 09/04/18 09/05/18 09/05/18 17:00 07:44 11:43 WBC RBC Hgb Hct MCV MCH MCHC RDW Plt Count MPV Immature Gran % Seg Neutrophils % Lymphocytes % Monocytes % Eosinophils % Basophils % Neutrophils # Lymphocytes # Monocytes # Eosinophils # Basophils # Platelet Estimate Large Platelets Immature Plt Fraction Sodium Potassium Chloride Carbon Dioxide BUN Creatinine Est GFR ( Amer) Est GFR (Non-Af Amer) BUN/Creatinine Ratio Glucose POC Glucose 218 H 162 H 208 H Calculated Osmolality Calcium Phosphorus Magnesium Vancomycin Trough 09/05/18 09/05/18 09/06/18 16:11 22:04 05:57 WBC 10.4 RBC 3.91 L Hgb 10.2 L Hct 30.3 L MCV 77.5 L MCH 26.1 L MCHC 33.7 RDW 15.3 H Plt Count 455 H MPV 9.4 Immature Gran % 1.8 Seg Neutrophils % 68.9 Lymphocytes % 16.5 Monocytes % 10.2 Eosinophils % 2.2 Basophils % 0.4 Neutrophils # 7.2 Lymphocytes # 1.7 Monocytes # 1.1 Eosinophils # 0.2 Basophils # 0.0 Platelet Estimate Increased H Large Platelets Present A Immature Plt Fraction 2.0 Sodium Potassium Chloride Carbon Dioxide BUN Creatinine Est GFR ( Amer) Est GFR (Non-Af Amer) BUN/Creatinine Ratio Glucose POC Glucose 191 H Calculated Osmolality Calcium Phosphorus Magnesium Vancomycin Trough 12 H 09/06/18 09/06/18 05:57 08:05 WBC RBC Hgb Hct MCV MCH MCHC RDW Plt Count MPV Immature Gran % Seg Neutrophils % Lymphocytes % Monocytes % Eosinophils % Basophils % Neutrophils # Lymphocytes # Monocytes # Eosinophils # Basophils # Platelet Estimate Large Platelets Immature Plt Fraction Sodium 136 Potassium 3.4 L Chloride 104 Carbon Dioxide 25 BUN 19 Creatinine 0.94 Est GFR ( Amer) > 60 Est GFR (Non-Af Amer) > 60 BUN/Creatinine Ratio 20 Glucose 154 H POC Glucose 157 H Calculated Osmolality 287 Calcium 8.3 L Phosphorus 2.7 Magnesium 1.9 Vancomycin Trough Cultures: Cultures 09/02/18 19:39 Surgical Biopsy Culture - Preliminary Left Foot Staphylococcus aureus Strep agalactiae - (Group B) Gram Positive Cocci 09/03/18 18:30 Surgical Biopsy Culture - Final Bone Staphylococcus aureus Strep agalactiae - (Group B) 09/02/18 09:59 Blood Culture - Final Peripheral Venipuncture Strep agalactiae - (Group B) 09/03/18 18:30 Anaerobic Culture - Preliminary Bone Culture is incubating. 09/03/18 11:05 Blood Culture - Preliminary Peripheral Venipuncture Culture is incubating and being continuously monitored for growth. Final report to follow. 09/03/18 11:05 Blood Culture - Preliminary Peripheral Venipuncture Culture is incubating and being continuously monitored for growth. Final report to follow. 09/02/18 19:39 Anaerobic Culture - Preliminary Left Foot Culture is incubating. Serology 09/03/18 09/02/18 Range/Units 16:45 09:59 A. baumannii (PCR) Not Detected (Not Detect) Chlamy pneumoniae PCR Not Detected (Not Detect) Adenovirus (PCR) Not Detected (Not Detect) B. pertussis DNA (PCR) Not Detected (Not Detect) B.parapertussis DNA PCR Not Detected (Not Detect) Rajani albicans (PCR) Not Detected (Not Detect) C. glabrata (PCR) Not Detected (Not Detect) C. krusei (PCR) Not Detected (Not Detect) C. parapsilosis (PCR) Not Detected (Not Detect) C. tropicalis (PCR) Not Detected (Not Detect) Coronavirus OC43 (PCR) DETECTED A (Not Detect) Coronavirus HKU1 (PCR) Not Detected (Not Detect) Coronavirus 229E (PCR) Not Detected (Not Detect) Coronavirus NL63 (PCR) Not Detected (Not Detect) Enterobacteriac sp PCR Not Detected (Not Detect) E. cloacae complex PCR Not Detected (Not Detect) Enterococcus sp PCR Not Detected (Not Detect) E. coli (PCR) Not Detected (Not Detect) H. influenzae (PCR) Not Detected (Not Detect) Human Metapneumovir PCR Not Detected (Not Detect) Influenza A (H1) PCR Not Detected (Not Detect) Influ A (H1N1/09) PCR Not Detected (Not Detect) Influenza A (H3) PCR Not Detected (Not Detect) Influenza A Untype (PCR) Not Detected (Not Detect) Influenza Type B (PCR) Not Detected (Not Detect) Klebsiella oxytoca PCR Not Detected (Not Detect) Klebsiella pneumoniae Not Detected (Not Detect) List. monocytogenes PCR Not Detected (Not Detect) M.pneumoniae DNA (PCR) Not Detected (Not Detect) N. meningitidis (PCR) Not Detected (Not Detect) Parainfluenza 1 (PCR) Not Detected (Not Detect) Parainfluenza 2 (PCR) Not Detected (Not Detect) Parainfluenza 3 (PCR) Not Detected (Not Detect) Parainfluenza 4 (PCR) Not Detected (Not Detect) Proteus species (PCR) Not Detected (Not Detect) RSV (PCR) Not Detected (Not Detect) Entero/Rhino (PCR) Not Detected (Not Detect) Serratia marcescens PCR Not Detected (Not Detect) Staphylococcus sp PCR Not Detected (Not Detect) Staph aureus (PCR) Not Detected (Not Detect) mecA-Methicil Res Gene Not Detected (Not Detect) Streptococcus sp PCR DETECTED A (Not Detect) Group A Strep DNA Not Detected (Not Detect) Group B Strep (PCR) DETECTED A (Not Detect) Strep pneumoniae (PCR) Not Detected (Not Detect) P. aeruginosa (PCR) Not Detected (Not Detect) Gilda/B-Vanco Res Genes Not Detected (Not Detect) KPC (blaKPC) Detect PCR Not Detected (Not Detect) Exam - Constitutional Vitals: Temp Pulse Resp BP Pulse Ox 98.4 F 93 18 138/73 95 09/06/18 07:22 09/06/18 07:22 09/06/18 07:22 09/06/18 07:22 09/06/18 07:22 General appearance: cooperative, morbidly obese, no acute distress - Head Head exam: Present: atraumatic, normal inspection, normocephalic - Eye Eye exam: Present: EOMI, normal appearance, PERRL Pupils: Present: normal accommodation - ENT ENT exam: Present: mucous membranes moist - Neck Neck exam: Present: normal inspection - Respiratory Respiratory exam: Present: CTAB. Absent: rales, respiratory distress, rhonchi, wheezes - Cardiovascular Cardiovascular exam: Present: RRR, +S1, +S2 - GI/Abdominal GI/Abdominal exam: Present: distended (Obese), normal bowel sounds, soft. Absent: tenderness - Extremities Exam Extremities exam: Absent: joint swelling, normal inspection (Left foot dressing clean, dry, and intact. Wound VAC noted with no evidence of leak with small amount of dark brown drainage noted. 2+ edema noted to the left lower extremity, 1+ edema noted to the right lower extremity.), tenderness - Neurological Exam Neurological exam: Present: alert, oriented X3, no focal deficits - Psychiatric Psychiatric exam: Present: normal affect, normal mood - Skin Skin exam: Present: dry, intact, normal color, warm Consult Discharge Plan - Plan Referrals: Juan Zuñiga DPM [Partnered Physician] - 09/16/18 9:45 am (Please follow up as schedule...) Lakshmi Thompson CNP [Advanced Practice Nurse] - 09/22/18 1:45 pm (Please follow up a schedule....) Akin Correa DO [Primary Care Provider] - 09/13/18 11:30 am (Please follow up as schedule.... ) Prescriptions: RX: metroNIDAZOLE [Flagyl] 500 mg PO TID 10 Days #30 tablet - Attending Attestation I have personally performed a face to face evaluation on this patient. I have reviewed and agree with the care plan. History and Exam by me shows: Patient seen and examined. Doing great clinically. There were placing a new PICC line central department light. Patient has having an allergic reaction to the tape. Assessment and plan: Osteomyelitis of the lower extremity, organism is enterococcus faecalis, group B strep and staph aureus MSSA. Patient is allergic to amoxicillin and clindamycin. He says to treat him with vancomycin which should cover all 3 organisms. Duration of treatment at least 6 weeks. Goal vancomycin trough around 15. Need to monitor kidney function closely. Viral syndrome causative organism coronavirus. Patient clinically doing well Diarrhea resolved Follow-up with us in clinic in 2 weeks.
[2018-09-06] MEDS ORDERED: Lidocaine -MPF 1% 5 ML AMPUL INFILT ONE (11:49)
--- NOTE | 2018-09-06 12:57 | Internal Med Progress Note ---
Hospitalist Progress Note - Encounter Date of Encounter: 09/06/18 Time of Encounter: 12:54 - Subjective Interval History: I have seen and evaluated the patient and bedside. reports less swelling on the left foot. denies pain. no diarrhea or loose stool - Exam Vitals: Temp Pulse Resp BP Pulse Ox 98.3 F 99 16 123/73 99 09/06/18 11:09 09/06/18 11:09 09/06/18 11:09 09/06/18 11:09 09/06/18 11:09 - Assessment and Plan (1) Diabetic foot ulcer Current Visit: Yes Status: Acute (2) Osteomyelitis Current Visit: Yes Status: Acute (3) Bacteremia Current Visit: Yes Status: Resolved (4) Sepsis Current Visit: Yes Status: Resolved (5) CKD (chronic kidney disease) stage 3, GFR 30-59 ml/min Current Visit: Yes Status: Acute (6) Diabetes Current Visit: Yes Status: Chronic (7) HTN (hypertension) Current Visit: Yes Status: Chronic (8) Gas gangrene Current Visit: Yes Status: Resolved - Time Spent with Patient Total time spent is greater than 50% in coordination of care (as documented) at patient's floor/unit and/or counseling patient: Internal Medicine: Result - Labs CBC & Chem 7: 09/06/18 05:57 09/06/18 05:57 Labs: Short CBC 09/06/18 Range/Units 05:57 WBC 10.4 (4.3-11.1) K/mcL Hgb 10.2 L (12.9-16.9) g/dL Hct 30.3 L (37.5-50.1) % Plt Count 455 H (140-400) K/mcL Neutrophils # 7.2 (1.6-8.9) K/mcL BMP 09/06/18 05:57 Sodium 136 Potassium 3.4 L Chloride 104 Carbon Dioxide 25 BUN 19 Creatinine 0.94 Glucose 154 H Calcium 8.3 L - ABG Interpretation ABG results: PT/INR, D-dimer PT 14.0 Seconds (9.4-12.1) H 09/02/18 09:00 Consult Discharge Plan - Plan Referrals: Lakshmi Thompson, ASTRID [Advanced Practice Nurse] - 09/22/18 1:45 pm Akin Correa DO [Primary Care Provider] - (unsure of discharge plan at this time. Patient may go to [facility] ) ____ (1) Diabetic foot ulcer Qualifiers: Diabetic foot ulcer location: unspecified part of foot Diabetes mellitus type: type 2 Laterality: left Non-pressure ulcer stage: with other severity Qualified Code(s): E11.621 - Type 2 diabetes mellitus with foot ulcer; L97.528 - Non-pressure chronic ulcer of other part of left foot with other specified severity (2) Osteomyelitis Qualifiers: Osteomyelitis type: acute hematogenous Osteomyelitis location: foot Laterality: left Qualified Code(s): M86.072 - Acute hematogenous osteomyelitis, left ankle and foot (4) Sepsis Qualifiers: Sepsis type: sepsis due to unspecified organism Qualified Code(s): A41.9 - Sepsis, unspecified organism (6) Diabetes Qualifiers: Diabetes mellitus type: type 2 Diabetes mellitus product/device technologist insulin use: with product/device technologist use Diabetes mellitus complication status: without complication Qualified Code(s): E11.9 - Type 2 diabetes mellitus without complications; 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
--- NOTE | 2018-09-06 13:00 | Discharge Summary ---
- NOTES TO OUTPATIENT PROVIDER Notes to Outpatient Provider: Follow up with ID 09/22/18 at 1345. Follow up at the wound center on Thursday for wound vac change. follow up with Juan Huitron a week from this . Orders not resulted at time of discharge: Pending orders 09/02/18 19:27 Surgical Pathology [PTH] Routine 09/02/18 19:39 Culture,Anaerobic [RM] Stat 09/03/18 11:05 Culture,Blood [BC] Stat 09/03/18 18:30 Culture,Anaerobic [RM] Routine 09/07/18 10:00 Vancomycin,Trough Timed Date of Encounter: 09/06/18 Time of Encounter: 12:57 - Discharge Diagnosis (1) Diabetic foot ulcer Priority: Primary Status: Acute Qualifiers: Diabetic foot ulcer location: unspecified part of foot Diabetes mellitus type: type 2 Laterality: left Non-pressure ulcer stage: with other severity Qualified Code(s): E11.621 - Type 2 diabetes mellitus with foot ulcer; L97.528 - Non-pressure chronic ulcer of other part of left foot with other specified severity (2) Osteomyelitis Priority: Secondary Status: Acute Qualifiers: Osteomyelitis type: acute hematogenous Osteomyelitis location: foot Laterality: left Qualified Code(s): M86.072 - Acute hematogenous osteomyelitis, left ankle and foot (3) Bacteremia Priority: Secondary Status: Resolved (4) Sepsis Priority: Secondary Status: Resolved Qualifiers: Sepsis type: sepsis due to unspecified organism Qualified Code(s): A41.9 - Sepsis, unspecified organism (5) CKD (chronic kidney disease) stage 3, GFR 30-59 ml/min Priority: Secondary Status: Acute (6) Diabetes Priority: Secondary Status: Chronic Qualifiers: Diabetes mellitus type: type 2 Diabetes mellitus residential insulin use: with residential use Diabetes mellitus complication status: without complication Qualified Code(s): E11.9 - Type 2 diabetes mellitus without complications; Z79.4 - [facility] (current) use of insulin (7) HTN (hypertension) Priority: Secondary Status: Chronic Qualifiers: Hypertension type: essential hypertension Qualified Code(s): I10 - Essential (primary) hypertension (8) Gas gangrene Priority: Secondary Status: Resolved Hospital course: Mr. Mulligan is a 57 year old male past medical history diabetes, hypertension. Presented with a L diabetic foot ulcer that has not responded to outpatient antibitoic therapy. patient was admitted to the hospital due to Sepsis due to diabetic food ulcer. MRI of the foot done: Diffuse subcutaneous edema and postcontrast enhancement of the soft tissues of the foot and also involving the intrinsic musculature of the foot with subcutaneous gas noted along the dorsal and plantar soft tissues and an ulceration extending to the underlying bone of the base of the 5th metatarsal. Findings most compatible with cellulitis and are highly suspicious for underlying myositis given subcutaneous gas and likely gas-forming infection. No well-defined drainable rim enhancing fluid collection is identified. 2. Marrow signal changes involving the residual 5th metatarsal with chronic appearing 5th metatarsal base fracture. Findings most compatible with osteomyelitis of the 5th metatarsal. Patient was managed with IV fluids plus broad spectrum IV antibiotics. Ux Specialist consulted, patient underwent incision and drainage left foot bone biopsy left foot plus wound vac inserting. One set of the blood culture grew strep group B. repeat blood cultures negative. left foot bone biopsy grew: staph MSSA, strep group B plus enterococcus. ID consulted recommended the patient to be discharged on Flaggyl, plus a 6 weeks course of vancomycin IV. Patient recommended to f/u with ID for kidney function monitoring. Patient is hemodynamically stable to be discharged home. - Time Spent with Patient Total time spent providing and/or coordinating discharge services: Greater than 30 minutes (45) - Discharge Medications Prescriptions: metroNIDAZOLE [Flagyl] 500 mg PO TID 10 Days #30 tablet Home Medications: Ondansetron HCl [Zofran] 4 mg PO TID #15 tablet 08/31/18 [Rx] Dulaglutide [Trulicity] 1.5 mg SQ SA 09/02/18 [History] Ferrous Sulfate [Iron] 325 mg PO DAILY 09/02/18 [History] Insulin ASPART [Novolog Flexpen] 40 units SQ BID 09/02/18 [History] Insulin Glargine,Hum.rec.anlog [Lantus Solostar] 40 unit SQ BID 09/02/18 [History] Lisinopril/Hydrochlorothiazide [Zestoretic 20-25 mg Tablet] 1 tab PO DAILY 09/02/18 [History] Metformin HCl 1,000 mg PO BID 09/02/18 [History] metroNIDAZOLE [Flagyl] 500 mg PO TID 10 Days #30 tablet 09/06/18 [Rx] Allergies/Adverse Reactions: Allergy/AdvReac Type Severity Reaction Status Date / Time Amoxicillin Allergy Rash Verified 09/02/18 10:59 clindamycin Allergy Rash Verified 09/02/18 10:59 Date of admission: 09/02/18 11:30 Primary care physician: Akin Correa DO Consults: 09/02/18 08:37 Consult to Podiatry [CONS] Stat Consulting Provider: [facility] Reason for Consult: LE infection Time Notified: 08:38 Call Completed: No 09/02/18 09:33 Consult to Invasive Line Access Team [CONS] Routine Reason for Consult: limited vascular access Line Type: EPIV 09/03/18 08:56 Consult to Infectious Diseases [CONS] Routine Consulting Provider: Infectious Disease [place] Reason for Consult: bacteremia diabetic foot ulcer Call Completed: No 09/06/18 11:49 Consult to Invasive Line Access Team [CONS] Routine Reason for Consult: Picc Line Insertion Line Type: PICC - Constitutional Vitals: Temp Pulse Resp BP Pulse Ox 98.3 F 99 16 123/73 99 09/06/18 11:09 09/06/18 11:09 09/06/18 11:09 09/06/18 11:09 09/06/18 11:09 General appearance: Present: A&O X 3, morbidly obese, answers questions appropriately Exam: Vitals: Reviewed. General: Alert and oriented 4. In no acute distress. Cardiovascular: RRR, normal S1 & S2, no rubs, murmurs or gallops. Lungs: Clear to auscultation bilaterally, no wheezes or crackles. Abdomen: Obese, soft, non-tender, no rigidity. NABS in all 4 quadrants Extremities: 2+ pitting edema on the lower extr b/l. clean dressing on the left foot with wound vac. Neurological: Normal cognition. Rest of the physical exam is non contributory - Patient Status Disposition: Home Health Service Condition: Good - Discharge Instructions Follow Up With: Lakshmi Thompson CONSUMER ATTORNEY [Advanced Practice Nurse] - 09/22/18 1:45 pm Akin Correa DO [Primary Care Provider] - (unsure of discharge plan at this time. Patient may go to [facility] ) - Diet and Activity Activity: other (ambulationt per fine craft artist recommendation. ) Diet: diabetic diet
--- NOTE | 2018-09-06 13:14 | Physician Discharge Referral ---
Home Health/Hosp Referral Info Transfer to: Home Health - Diagnosis (1) Diabetic foot ulcer Priority: Primary Status: Acute (2) Osteomyelitis Priority: Secondary Status: Acute (3) Bacteremia Priority: Secondary Status: Resolved (4) Sepsis Priority: Secondary Status: Resolved (5) CKD (chronic kidney disease) stage 3, GFR 30-59 ml/min Priority: Secondary Status: Acute (6) Diabetes Priority: Secondary Status: Chronic (7) HTN (hypertension) Priority: Secondary Status: Chronic (8) Gas gangrene Priority: Secondary Status: Resolved - Respiratory Orders None Smoking Cessation: Smoking cessation has been advised. For more information, call the [place] Tobacco Quit Line at 6-090-UTWO-NOW. - Diet/Nutrition Diet/Nutrition Orders: Regular - Activity Activity Orders: Chair - Services Needed Following services are medically necessary services: Nursing, Home Health Aide, Physical Therapy, Occupational Therapy - Transfer Medications Prescriptions: metroNIDAZOLE [Flagyl] 500 mg PO TID 10 Days #30 tablet Home Medications: Ondansetron HCl [Zofran] 4 mg PO TID #15 tablet 08/31/18 [Rx] Dulaglutide [Trulicity] 1.5 mg SQ SA 09/02/18 [History] Ferrous Sulfate [Iron] 325 mg PO DAILY 09/02/18 [History] Insulin ASPART [Novolog Flexpen] 40 units SQ BID 09/02/18 [History] Insulin Glargine,Hum.rec.anlog [Lantus Solostar] 40 unit SQ BID 09/02/18 [H istory] Lisinopril/Hydrochlorothiazide [Zestoretic 20-25 mg Tablet] 1 tab PO DAILY 09/02/18 [History] Metformin HCl 1,000 mg PO BID 09/02/18 [History] metroNIDAZOLE [Flagyl] 500 mg PO TID 10 Days #30 tablet 09/06/18 [Rx] Allergies/Adverse Reactions: Allergy/AdvReac Type Severity Reaction Status Date / Time Amoxicillin Allergy Rash Verified 09/02/18 10:59 clindamycin Allergy Rash Verified 09/02/18 10:59 Certification: Further, I certify that my clinical findings support that this patient is homebound (i.e. absences from home require considerable and taxing effort and are for medical reasons or episcopalian services or infrequently or short duration when for other reasons) because: Homebound Reason: Patient requires assistance of a person or device to safely leave home Attestation: My signature below is to certify that this patient is under my care and that I, or nurse practitioner, or a physician's offset press assistant working with me, has a veee-sx-chif encounter with this patient.
--- NOTE | 2018-09-06 13:38 | Podiatry Progress Note ---
Date of Encounter: 09/06/18 Time of Encounter: 11:05 - Assessment and Plan (1) Diabetes Current Visit: Yes Assessment: Hgb A1c 6.9 05/22/18. 7.6 09/02/18 Glucose 154 known hx of DM' Plan: Tight glycemic control to be managed by internal medicine Qualifiers: Diabetes mellitus type: type 2 Diabetes mellitus intermediate designer insulin use: with halfway use Diabetes mellitus complication status: without complication Qualified Code(s): E11.9 - Type 2 diabetes mellitus without complications; Z79.4 - longterm (current) use of insulin (2) Diabetic foot ulcer Current Visit: Yes Status: Acute Assessment: Dressing intact, dry serosang drainage noted on dressing, wound vac functioning properly with 100cc of drainage noted Dressing removed and site flushed with .9NS Blandon grade 3 ulcer left lateral aspect mid-foot No odor Large amount of serosang coagulated brown drainage flushed from site as well as surgicel Wound edges with maceration noted and dehiscence proximate and distal suture sites Serosang drainage Temperature in left foot mildly warmer compared to right Erythema extending dorsal aspect of left foot noted but improving Edema improving 2-3+ No streaking noted Small bulla noted anterior ankle MRI with evidence of: 1. Diffuse subcutaneous edema and postcontrast enhancement of the soft tissues of the foot and also involving the intrinsic musculature of the foot with subcutaneous gas noted along the dorsal and plantar soft tissues and an ulceration extending to the underlying bone of the base of the 5th metatarsal. Findings most compatible with cellulitis and are highly suspicious for underlying myositis given subcutaneous gas and likely gas-forming infection. No well-defined drainable rim enhancing fluid collection is identified. 2. Marrow signal changes involving the residual 5th metatarsal with chronic appearing 5th metatarsal base fracture. Findings most compatible with osteomyelitis of the 5th metatarsal. 3. Patchy marrow edema and postcontrast enhancement involving the midfoot and hindfoot which is favored to reflect reactive noninfectious osteitis given no well-defined confluent T1 signal identified at these sites on the current exam. Early changes of osteomyelitis would be difficult to excluded but are felt less likely given the widespread marrow signal change. ESR 43 on 08/19/18, increased to 104 09/02/18 CRP 5mg/l 08/19/18, increased to 273 08/02/18 HgbA1c 6.9 05/22/18, 7.6 08/02/18 Left foot x-ray with evidence of extensive subcutaneous gas and soft tissue swelling WBC continues to trend down, 10.2 Lactic acid 2.5 09/02/18 PT 14.0 INR 1.2 Final wound culture Staphylococcus aureus, Strep agalactiae (Group B), and Enterococcus faecalis Final bone culture Staphylococcus aureus, and strep agalactiae (Group B) Anaerobic wound and bone culture no growth at this time, preliminary, pending Blood cultures from 09/03/18 pending Plan: Dressing removed and site flushed with .9NS Wound edges painted with betadine Iodoform changed Wound vac applied. Skin draped in normal fashion, white foam placed to wound bed and then black foam cut and placed, bridged to dorsal aspect of foot, covered with tegaderm, split 4x4's, and kerlix, no leak noted. Continuous suction increased to 150mmHg, dressing to be changed every Thursday, Thursday, Thursday ID following May have to place muscle flap at later date to cover All questions and concerns addressed Follow up with Dr. Zuñiga in [facility] after discharge Recommend Social Service to help coordinate wound vac at home Will continue to monitor Qualifiers: Diabetic foot ulcer location: unspecified part of foot Diabetes mellitus type: type 2 Laterality: left Non-pressure ulcer stage: with other severity Qualified Code(s): E11.621 - Type 2 diabetes mellitus with foot ulcer; L97.528 - Non-pressure chronic ulcer of other part of left foot with other specified severity Subjective Interval history: Post op day #4. incision and drainage left foot and bone biopsy left foot by Dr. Zuñiga on 09/02/18 Patient is alert and oriented x 3, sitting in bed with head elevated. Wound vac dressing intact with dry serosang drainage noted and wound vac functioning properly. Patient denies pain. He denies any chest pain, shortness of breath, or calf pain. Patient afebrile. He denies any fever, nausea, vomiting, chills, or diarrhea. Patient stated he can tell the swelling is less because he can finally moves his toes. Objective - Vital Signs Vital Signs: Vital Signs Temp Pulse Resp BP Pulse Ox 09/06/18 11:09 98.3 F 99 16 123/73 99 09/06/18 07:22 98.4 F 93 18 138/73 95 09/06/18 05:32 98.1 F 96 16 132/74 96 09/06/18 00:45 98.2 F 105 18 131/74 96 09/05/18 21:08 98.5 F 101 18 135/75 96 09/05/18 21:06 96 09/05/18 16:13 98.1 F 98 18 131/81 97 Intake and Output 09/05/18 09/06/18 09/06/18 23:59 07:59 15:59 Intake Total 140 / 140 1400 / 1400 120 / 120 Output Total Balance 130 / 130 1390 / 1390 120 / 120 Intake: IV Fluids 140 / 140 600 / 600 120 / 120 Maxipime 2,000 MG In Water for inj. (sterile) 20 ML @ 300 mls/ hr IVP Q8HR [facility]DR[facility] Rx#:[id number] Flagyl Premix 500 MG/100 ML 500 100 / 100 100 / 100 100 / 100 mg In 100 ml @ 100 mls/hr IVPB Q8HR [facility]DR[facility] Rx#:[id number] Vancocin 1,750 MG In 0.9 % 500 / 500 Sodium Chloride 500 ML @ 333. 333 mls/hr IVPB Q12H SANDRA Rx#: [id number] Oral 800 / 800 Output: Wound Drainage Left Foot Other: Stool Size Moderate Stool Consistency formed Stool Characteristics Normal for Patient Stool Color Brown # Voids 1 Blood Glucose* 191 185 - Exam Exam: Constitiutional: Alert and oriented x 3, well nourished male. No acute distress noted. Vascular: 2/4 DP, 2/4 PT pulses noted, CFT <3 sec to all digits, skin warm from toes to tibia and erythema noted left foot with 2-3+ edema Neurologic: Diminished protective sensation noted, proprioception sensation absent Dermatalogic: Blandon grade 3 ulcer noted left lateral aspect mid-foot. No odor. Erythema extending to dorsal aspect of foot improving, and edema is less 2-3+. No streaking noted. Wound edges macerated and dehiscence of of proximal and distal sutures sites noted Musculoskeletal: 4/5 muscle strength and normal tone - Lab Result Diagrams: 09/06/18 05:57 09/06/18 05:57 Labs: Abnormal lab results RBC 3.91 M/mcL (4.19-5.50) L 09/06/18 05:57 Hgb 10.2 g/dL (12.9-16.9) L 09/06/18 05:57 Hct 30.3 % (37.5-50.1) L 09/06/18 05:57 MCV 77.5 fL (83.0-100.0) L 09/06/18 05:57 MCH 26.1 pg (28.0-33.3) L 09/06/18 05:57 RDW 15.3 % (11.5-14.5) H 09/06/18 05:57 Plt Count 455 K/mcL (140-400) H 09/06/18 05:57 Platelet Estimate Increased (Normal) H 09/06/18 05:57 Large Platelets Present (Not Present) A 09/06/18 05:57 ESR 104 mm/hr (0-10) H 09/02/18 13:57 PT 14.0 Seconds (9.4-12.1) H 09/02/18 09:00 Potassium 3.4 mEq/L (3.5-5.1) L 09/06/18 05:57 Glucose 154 mg/dL (70-105) H 09/06/18 05:57 POC Glucose 157 mg/dL (70-99) H 09/06/18 08:05 Hemoglobin A1c 7.6 % (-5.6) H 09/02/18 09:00 Calcium 8.3 mg/dL (8.6-10.3) L 09/06/18 05:57 AST 41 Units/L (13-39) H 09/02/18 09:00 ALT 67 Units/L (7-52) H 09/02/18 09:00 Alkaline Phosphatase 187 Units/L (34-104) H 09/02/18 09:00 C-Reactive Protein 273 mg/L (Less than 10) H 09/02/18 15:13 Albumin 3.1 g/dL (3.5-5.7) L 09/02/18 09:00 Globulin 3.9 g/dL (2.4-3.5) H 09/02/18 09:00 Albumin/Globulin Ratio 0.8 (1.1-2.2) L 09/02/18 09:00 Vancomycin Trough 12 mcg/mL (5-10) H 09/05/18 22:04 Coronavirus OC43 (PCR) DETECTED (Not Detect) A 09/03/18 16:45 Streptococcus sp PCR DETECTED (Not Detect) A 09/02/18 09:59 Group B Strep (PCR) DETECTED (Not Detect) A 09/02/18 09:59 Microbiology, Last 48 Hours 09/03/18 18:30 Anaerobic Culture - Preliminary Bone At this time, no anaerobic growth is present. The culture will be finalized after 5 days of incubation. 09/02/18 19:39 Anaerobic Culture - Preliminary Left Foot At this time, no anaerobic growth is present. The culture will be finalized after 5 days of incubation. 09/02/18 19:39 Surgical Biopsy Culture - Final Left Foot Staphylococcus aureus Strep agalactiae - (Group B) Enterococcus faecalis 09/03/18 18:30 Surgical Biopsy Culture - Final Bone Staphylococcus aureus Strep agalactiae - (Group B) 09/02/18 09:59 Blood Culture - Final Peripheral Venipuncture Strep agalactiae - (Group B) Consult Discharge Plan - Plan Referrals: Juan Zuñiga DPM [Partnered Physician] - 09/16/18 9:45 am (Please follow up as schedule...) Lakshmi Thompson CNP [Advanced Practice Nurse] - 09/22/18 1:45 pm (Please follow up a schedule....) Akin Correa DO [Primary Care Provider] - 09/13/18 11:30 am (Please follow up as schedule.... ) Prescriptions: RX: metroNIDAZOLE [Flagyl] 500 mg PO TID 10 Days #30 tablet
[2018-09-06] MEDS: metroNIDAZOLE 500 MG TABLET PO SCH ×2 (15:20→21:32)
[2018-09-07] MEDS: *HR* Enoxaparin 40 MG/0.4 ML SYRINGE SQ SCH (05:13)
[2018-09-07] MEDS: Insulin LISPRO 300 UNITS/3 ML VIAL SQ SCH ×2 (10:29→12:24)
[2018-09-07] MEDS: Insulin DETEMIR 100 UNIT/ML X5UNITS SQ SCH (10:30)
[2018-09-07] MEDS: Loratadine 10 MG TABLET PO SCH (10:30)
[2018-09-07] MEDS: metroNIDAZOLE 500 MG TABLET PO SCH ×2 (10:30→15:03)
[2018-09-07 10:43] VITALS: BP 167/91
--- NOTE | 2018-09-07 11:03 | Event Note ---
Date of Encounter: 09/07/18 Time of Encounter: 10:58 I have seen and evaluated the patient at bedside. He reports doing well, denies chest pain, nausea, abdominal pain or loose stool. pain/edema of the left foot improving. Physical exam: Vitals: Reviewed. General: Alert and oriented 4. In no acute distress. Cardiovascular: RRR, normal S1 & S2, no rubs, murmurs or gallops. Lungs: Clear to auscultation bilaterally, no wheezes or crackles. Abdomen: Obese, soft, non-tender, no rigidity. NABS in all 4 quadrants Extremities: 2+ pitting edema on the lower extr b/l. clean dressing on the left foot. Neurological: Normal cognition. Rest of the physical exam is non contributory Assessment and Plan 1. Osteomyelitis 2. Diabetic foot ulcer 3. Cellulitis of the left foot 4. gas gangrene of left foot (resolved) 5. HTN 6. DM 7. HLD 8. Sepsis/resolved 9. Bacteremia/resolved 10 VTE prophylaxis Plan: patient is discharged, pending outpatient wound vac and antibiotics set-up will continue vancomyin per pharmacy protocol on metronidazole 500mg/PO BID on levemir and lispro for glycemic control enoxaparin for dvt prophylaxis
[2018-09-07] MEDS ORDERED: Aminoglycoside Consult 1 EACH MC ONE (16:02)
== END 2018-09-07 16:03 | disposition home health service (06) | DRG 853 ==
LOC: EMEROOARM 08:34 → SUATTDRO 11:30 → 2ANU 11:30
PROVIDERS: ADMIT Internal Medicine; ATTEND Internal Medicine

== ENCOUNTER 2022-03-23 12:25 | Inpatient (IN) ==
[2022-03-23 14:47] LABS: Basophils % 0.2 %; Hematocrit 33.6 % (37.5-50.1); Hemoglobin 10.7 g/dL (12.9-16.9); Lymphocytes # 0.2 K/mcL (0.6-4.6); Lymphocytes % 2.5 %; Mean Corpuscular HGB Conc 31.8 g/dL (31.6-35.5); Mean Corpuscular Hemoglobin 26.8 pg (28.0-33.3); Mean Corpuscular Volume 84.2 fL (83.0-100.0); Mean Platelet Volume 9.5 fL (9.4-12.4); Monocytes # 0.5 K/mcL (0.0-1.3); Monocytes % 5.1 %; Neutrophils # 8.2 K/mcL (1.6-8.9); Platelet Count 256 K/mcL (140-400); Red Blood Count 3.99 M/mcL (4.19-5.50); Red Cell Distribution Width 15.6 % (11.5-14.5); Segmented Neutrophils % 91.2 %
[2022-03-23 15:10] LABS: Calcium 8.2 mg/dL (8.6-10.3); Potassium 4.4 mEq/L (3.5-5.1)
[2022-03-23 15:26] LABS: Influenza A PCR Negative (Negative); Influenza B PCR Negative (Negative); Resp. Syncytial Virus PCR Negative (Negative)
[2022-03-23 15:29] LABS: SARS-CoV-2 by PCR (In House) Negative (Negative)
[2022-03-23] MEDS ORDERED: 0.9 % Sodium Chloride 500 ML IVC ONE (15:52)
[2022-03-23] MEDS ORDERED: 0.9 % Sodium Chloride 1,000 ML IVC ONE ×2 (15:52)
[2022-03-23] MEDS ORDERED: Piperacillin/Tazobactam 3.375 GM in 0.9 % Sodium Chloride Mini Bag 100 ML IVPB ONE (16:03)
[2022-03-23] MEDS ORDERED: Ondansetron 4 MG/2 ML VIAL IVP PRN (17:13)
[2022-03-23] MEDS ORDERED: Naloxone 0.4 MG/ML INJ IVP PRN (17:13)
[2022-03-23] MEDS ORDERED: Acetaminophen 325 MG TABLET PO PRN (17:13)
[2022-03-23] MEDS ORDERED: Melatonin 3 MG TABLET PO PRN (17:13)
[2022-03-23] MEDS ORDERED: Ibuprofen 400 MG TABLET PO PRN (17:13)
[2022-03-23] MEDS ORDERED: D5% in Water 1,000 ML IVC PRN (17:16)
[2022-03-23] MEDS ORDERED: Dextrose Gel 15 GM/37.5 ML TUBE PO PRN ×2 (17:16)
[2022-03-23] MEDS ORDERED: *HR* Dextrose 50 % in Water (Syg) 50 ML SYRINGE IVP PRN (17:16)
[2022-03-23] MEDS: Insulin LISPRO 300 UNITS/3 ML VIAL SUBQ SCH (18:30)
[2022-03-23] MEDS: Insulin DETEMIR 100 UNIT/ML X5UNITS SUBQ SCH (20:30)
[2022-03-23] MEDS: 0.9 % Sodium Chloride 1,000 ML IVC SCH (20:30)
[2022-03-23] MEDS ORDERED: Insulin DETEMIR 100 UNIT/ML X5UNITS SUBQ SCH (21:00)
[2022-03-23] MEDS: Piperacillin/Tazobactam 3.375 GM in 0.9 % Sodium Chloride Mini Bag 100 ML IVPB SCH (22:53)
[2022-03-24] MEDS ORDERED: Ringers Solution, Lactated 500 ML IVC ONE (00:05)
[2022-03-24] MEDS: Insulin LISPRO 300 UNITS/3 ML VIAL SUBQ SCH ×5 (00:05→20:17)
[2022-03-24] MEDS ORDERED: DAPTOmycin 1,000 MG in 0.9 % Sodium Chloride 100 ML IVPB SCH (00:14)
[2022-03-24 04:22] LABS: Basophils % 0.3 %; Eosinophils % 0.1 %; Hematocrit 33.3 % (37.5-50.1); Hemoglobin 10.5 g/dL (12.9-16.9); Immature Granulocytes % 0.6 % (0-4); Lymphocytes # 0.2 K/mcL (0.6-4.6); Lymphocytes % 3.2 %; Mean Corpuscular HGB Conc 31.5 g/dL (31.6-35.5); Mean Corpuscular Hemoglobin 26.3 pg (28.0-33.3); Mean Corpuscular Volume 83.3 fL (83.0-100.0); Mean Platelet Volume 10.1 fL (9.4-12.4); Monocytes # 0.5 K/mcL (0.0-1.3); Monocytes % 6.7 %; Neutrophils # 6.5 K/mcL (1.6-8.9); Platelet Count 246 K/mcL (140-400); Red Cell Distribution Width 15.5 % (11.5-14.5); Segmented Neutrophils % 89.1 %; White Blood Count 7.3 K/mcL (4.3-11.1)
[2022-03-24 04:26] LABS: INR 1.3; Prothrombin Time 14.7 Seconds (9.4-12.1)
[2022-03-24 04:37] LABS: Platelet Estimate Normal (Normal); Smudge Cells Present (Not Present)
[2022-03-24 04:45] LABS: Bilirubin,Total 0.5 mg/dL (0.3-1.0); Calcium 7.9 mg/dL (8.6-10.3); Globulin 3.1 g/dL (2.4-3.5); Potassium 4.4 mEq/L (3.5-5.1); Total Protein 6.1 g/dL (6.4-8.9)
[2022-03-24] MEDS ORDERED: methylPREDNISolone 125 MG/2 ML VIAL IVP ONE (08:24)
[2022-03-24] MEDS ORDERED: Famotidine 20 MG/2 ML VIAL IVP ONE (08:24)
[2022-03-24] MEDS ORDERED: Ipratropium/Albuterol Neb 3 ML IH PRN (08:24)
[2022-03-24] MEDS: Piperacillin/Tazobactam 3.375 GM in 0.9 % Sodium Chloride Mini Bag 100 ML IVPB SCH ×3 (08:53→23:04)
[2022-03-24 10:11] LABS: A.calcoaceticus-baumannii cplx Not Detected (Not Detect); Bacteroides fragilis by PCR Not Detected (Not Detect); Candida albicans by PCR Not Detected (Not Detect); Candida auris by PCR Not Detected (Not Detect); Candida glabrata by PCR Not Detected (Not Detect); Candida krusei by PCR Not Detected (Not Detect); Candida parapsilosis by PCR Not Detected (Not Detect); Candida tropicalis by PCR Not Detected (Not Detect); Crypto. neoformans/gattii PCR Not Detected (Not Detect); Enterobacter cloacae Cmplx PCR Not Detected (Not Detect); Enterobacterales by PCR Not Detected (Not Detect); Enterococcus faecalis by PCR Not Detected (Not Detect); Enterococcus faecium by PCR Not Detected (Not Detect); Escherichia coli by PCR Not Detected (Not Detect); Klebs. pneumoniae group by PCR Not Detected (Not Detect); Klebsiella aerogenes by PCR Not Detected (Not Detect); Klebsiella oxytoca by PCR Not Detected (Not Detect); Proteus by PCR Not Detected (Not Detect); Pseudomonas aeruginosa by PCR Not Detected (Not Detect); Salmonella species by PCR Not Detected (Not Detect); Serratia marcescens by PCR Not Detected (Not Detect); Staph epidermidis by PCR Not Detected (Not Detect); Staph lugdunensis by PCR Not Detected (Not Detect); Staphylococcus aureus by PCR DETECTED (Not Detect); Stenotrophomonas maltophilia Not Detected (Not Detect); Streptococcus agalactiae(B)PCR Not Detected (Not Detect); Streptococcus by PCR Not Detected (Not Detect); Streptococcus pneumoniae PCR Not Detected (Not Detect); Streptococcus pyogenes (A) PCR Not Detected (Not Detect); mecA/C & MREJ (MRSA) Gene DETECTED (Not Detect)
[2022-03-24] MEDS: 0.9 % Sodium Chloride 1,000 ML IVC SCH (12:34)
[2022-03-24] MEDS: Aspirin 325 MG TABLET PO SCH (12:35)
[2022-03-24] MEDS: Loratadine 10 MG TABLET PO SCH (12:35)
[2022-03-24] MEDS: amLODIPine 5 MG TABLET PO SCH (12:35)
[2022-03-24] MEDS ORDERED: DAPTOmycin 650 MG in 0.9 % Sodium Chloride 100 ML IVPB SCH (16:00)
[2022-03-24 17:16] LABS: Creatine Kinase 191 Units/L (30-223)
[2022-03-24 17:19] LABS: C-Reactive Protein 213 mg/L (Less than 10)
[2022-03-24] MEDS: *HR* Heparin 5,000 UNIT/ML VIAL SQ SCH ×2 (19:04→20:17)
[2022-03-24] MEDS: Insulin DETEMIR 100 UNIT/ML X5UNITS SUBQ SCH (20:17)
[2022-03-24] MEDS: DAPTOmycin 650 MG in 0.9 % Sodium Chloride 100 ML IVPB SCH (21:11)
[2022-03-25 05:07] LABS: Basophils % 0.1 %; Hematocrit 34.9 % (37.5-50.1); Hemoglobin 11.3 g/dL (12.9-16.9); Immature Granulocytes % 0.7 % (0-4); Lymphocytes # 0.6 K/mcL (0.6-4.6); Lymphocytes % 7.5 %; Mean Corpuscular HGB Conc 32.4 g/dL (31.6-35.5); Mean Corpuscular Hemoglobin 26.8 pg (28.0-33.3); Mean Corpuscular Volume 82.9 fL (83.0-100.0); Mean Platelet Volume 10.2 fL (9.4-12.4); Monocytes # 0.6 K/mcL (0.0-1.3); Monocytes % 7.7 %; Neutrophils # 6.9 K/mcL (1.6-8.9); Platelet Count 241 K/mcL (140-400); Red Blood Count 4.21 M/mcL (4.19-5.50); Red Cell Distribution Width 15.6 % (11.5-14.5); White Blood Count 8.2 K/mcL (4.3-11.1)
[2022-03-25 05:25] LABS: Albumin/Globulin Ratio 0.9 (1.1-2.2); Bilirubin,Total 0.4 mg/dL (0.3-1.0); Globulin 3.4 g/dL (2.4-3.5); Potassium 4.4 mEq/L (3.5-5.1); Total Protein 6.4 g/dL (6.4-8.9)
[2022-03-25] MEDS: *HR* Heparin 5,000 UNIT/ML VIAL SQ SCH ×3 (05:49→21:42)
[2022-03-25] MEDS: Insulin LISPRO 300 UNITS/3 ML VIAL SUBQ SCH ×4 (08:17→21:43)
[2022-03-25] MEDS: Loratadine 10 MG TABLET PO SCH (09:26)
[2022-03-25] MEDS: Aspirin 325 MG TABLET PO SCH (09:26)
[2022-03-25] MEDS: amLODIPine 5 MG TABLET PO SCH (09:26)
[2022-03-25] MEDS: Piperacillin/Tazobactam 3.375 GM in 0.9 % Sodium Chloride Mini Bag 100 ML IVPB SCH ×3 (09:27→23:40)
[2022-03-25] MEDS: Insulin DETEMIR 100 UNIT/ML X5UNITS SUBQ SCH (21:42)
[2022-03-25] MEDS: DAPTOmycin 650 MG in 0.9 % Sodium Chloride 100 ML IVPB SCH (23:40)
[2022-03-26] MEDS: *HR* Heparin 5,000 UNIT/ML VIAL SQ SCH ×3 (05:19→22:40)
[2022-03-26] MEDS ORDERED: *HR* FentaNYL (PF) 100 MCG/2 ML VIAL ONE (07:06)
[2022-03-26] MEDS ORDERED: *HR* Midazolam HCl 2 MG/2 ML VIAL ONE (07:07)
[2022-03-26] MEDS ORDERED: *HR* Succinylcholine 200 MG/10 ML VIAL IVP ONE (07:14)
[2022-03-26] MEDS ORDERED: Lidocaine -MPF 2% 5 ML VIAL ONE (07:14)
[2022-03-26] MEDS ORDERED: Bupivacaine/EPI 1:200k 0.25% 50 ML VIAL ONE (07:30)
[2022-03-26] MEDS ORDERED: *HR* Metoprolol 5 MG/5 ML VIAL IVP ONE (08:47)
[2022-03-26] MEDS ORDERED: Tobramycin Sulf (Sterile) 1.2 GM VIAL ONE (09:14)
[2022-03-26] MEDS ORDERED: Naloxone 0.4 MG/ML INJ IVP PRN (09:35)
[2022-03-26] MEDS ORDERED: Melatonin 3 MG TABLET PO PRN (09:35)
[2022-03-26] MEDS ORDERED: Ibuprofen 400 MG TABLET PO PRN (09:35)
[2022-03-26] MEDS ORDERED: *HR* Dextrose 50 % in Water (Syg) 50 ML SYRINGE IVP PRN (09:35)
[2022-03-26] MEDS ORDERED: Acetaminophen 325 MG TABLET PO PRN (09:35)
[2022-03-26] MEDS ORDERED: Dextrose Gel 15 GM/37.5 ML TUBE PO PRN ×2 (09:35)
[2022-03-26] MEDS ORDERED: Ondansetron 4 MG/2 ML VIAL IVP PRN (09:35)
[2022-03-26] MEDS ORDERED: D5% in Water 1,000 ML IVC PRN (09:35)
[2022-03-26] MEDS ORDERED: Ipratropium/Albuterol Neb 3 ML IH PRN (09:35)
[2022-03-26] MEDS: Gabapentin 300 MG CAPSULE PO SCH (12:43)
[2022-03-26] MEDS: Insulin LISPRO 300 UNITS/3 ML VIAL SUBQ SCH ×5 (12:44→22:40)
[2022-03-26] MEDS: metroNIDAZOLE 500 MG TABLET PO SCH ×2 (14:44→22:39)
[2022-03-26] MEDS ORDERED: Piperacillin/Tazobactam 3.375 GM in 0.9 % Sodium Chloride Mini Bag 100 ML IVPB SCH (16:00)
[2022-03-26] MEDS: Cefepime HCl 2,000 MG in 0.9 % Sodium Chloride 20 ML IVP SCH (16:44)
[2022-03-26] MEDS ORDERED: Insulin DETEMIR 100 UNIT/ML X5UNITS SUBQ SCH ×2 (21:00)
[2022-03-27] MEDS: DAPTOmycin 650 MG in 0.9 % Sodium Chloride 100 ML IVPB SCH ×2 (00:28→22:29)
[2022-03-27] MEDS: *HR* Heparin 5,000 UNIT/ML VIAL SQ SCH ×3 (06:12→22:20)
[2022-03-27] MEDS: Cefepime HCl 2,000 MG in 0.9 % Sodium Chloride 20 ML IVP SCH ×2 (06:12→17:01)
[2022-03-27 06:47] LABS: Basophils % 0.3 %; Eosinophils # 0.2 K/mcL (0.0-0.6); Eosinophils % 2.3 %; Hematocrit 33.3 % (37.5-50.1); Hemoglobin 10.3 g/dL (12.9-16.9); Immature Granulocytes % 3.8 % (0-4); Lymphocytes # 1.7 K/mcL (0.6-4.6); Lymphocytes % 18.9 %; Mean Corpuscular HGB Conc 30.9 g/dL (31.6-35.5); Mean Corpuscular Hemoglobin 25.9 pg (28.0-33.3); Mean Corpuscular Volume 83.7 fL (83.0-100.0); Mean Platelet Volume 10.2 fL (9.4-12.4); Monocytes # 1.2 K/mcL (0.0-1.3); Monocytes % 13.1 %; Neutrophils # 5.6 K/mcL (1.6-8.9); Platelet Count 238 K/mcL (140-400); Red Blood Count 3.98 M/mcL (4.19-5.50); Red Cell Distribution Width 15.7 % (11.5-14.5); Segmented Neutrophils % 61.6 %; White Blood Count 9.2 K/mcL (4.3-11.1)
[2022-03-27 06:53] LABS: Magnesium 1.6 mg/dL (1.6-2.6); Phosphorous 2.7 mg/dL (2.7-4.5); Potassium 3.9 mEq/L (3.5-5.1)
[2022-03-27] MEDS: metroNIDAZOLE 500 MG TABLET PO SCH ×3 (08:20→22:20)
[2022-03-27] MEDS: Magnesium Oxide 400 MG TABLET PO SCH (08:20)
[2022-03-27] MEDS: Gabapentin 300 MG CAPSULE PO SCH (08:20)
[2022-03-27] MEDS: Aspirin 325 MG TABLET PO SCH (08:20)
[2022-03-27] MEDS: amLODIPine 5 MG TABLET PO SCH (08:20)
[2022-03-27] MEDS: Loratadine 10 MG TABLET PO SCH (08:21)
[2022-03-27] MEDS: Insulin LISPRO 300 UNITS/3 ML VIAL SUBQ SCH ×7 (08:28→22:30)
[2022-03-27] MEDS: Insulin DETEMIR 100 UNIT/ML X5UNITS SUBQ SCH ×2 (08:35→22:22)
[2022-03-28] MEDS: Cefepime HCl 2,000 MG in 0.9 % Sodium Chloride 20 ML IVP SCH (06:02)
[2022-03-28] MEDS: *HR* Heparin 5,000 UNIT/ML VIAL SQ SCH (06:03)
[2022-03-28] MEDS: Insulin LISPRO 300 UNITS/3 ML VIAL SUBQ SCH ×2 (08:12)
[2022-03-28] MEDS ORDERED: Cyanocobalamin (B-12) 1,000 MCG TABLET PO SCH (09:00)
[2022-03-28] MEDS: metroNIDAZOLE 500 MG TABLET PO SCH (09:45)
[2022-03-28] MEDS: Gabapentin 300 MG CAPSULE PO SCH (10:21)
[2022-03-28] MEDS: Loratadine 10 MG TABLET PO SCH (10:21)
[2022-03-28] MEDS: amLODIPine 5 MG TABLET PO SCH (10:21)
[2022-03-28] MEDS: Insulin DETEMIR 100 UNIT/ML X5UNITS SUBQ SCH (10:21)
[2022-03-28] MEDS: Aspirin 325 MG TABLET PO SCH (10:21)
[2022-03-28] MEDS: Magnesium Oxide 400 MG TABLET PO SCH (10:21)
[2022-03-28 12:00] VITALS: BP 147/83; PULSE 79; TEMP 98; O2SAT 96
== END 2022-03-28 13:23 | disposition home health service (06) | DRG 853 ==
LOC: EMEROOARM 12:25 → 4WAOSI 12:25 → SUATTDRO 17:00 → 4WAOSI 18:02 → SUATTDRO 03-24 15:47
PROVIDERS: ADMIT Pharmacist; ATTEND Internal Medicine